=== PATIENT | female | born 1970 | race Caucasian/White ===

== ENCOUNTER 2017-07-28 09:00 | Outpatient (RCR) | payer OTHER, SELFPAY | END 2017-07-28 09:01 | disposition home or self-care (01) | LOC: PT 09:00 | PROVIDERS: Family Provider Family Medicine | DX: M54.17 Radiculopathy, lumbosacral region (principal) | CPT/HCPCS: 97010; 97012; 97014; 97110; 97140; G0283 ==

== ENCOUNTER → 2018-01-18 15:51 | Outpatient (CLI) | payer BC, SELFPAY ==
--- NOTE | 2018-01-18 15:55 | MM_ITS ---
MM Dig screening mamm BI w/CAD ORDERING PHYSICIAN : Mirela Klein PATIENT AGE: 47 years GENDER: Female COMPARISON: September 2015, May 20142010 bilateral mammogram. INDICATION: ITS.REASON: ANNUAL routine screening. Positive female hormone.: estrogen and progesterone. Family history.: Paternal cousin TECHNIQUE: Standard CC and MLO images were obtained. Additional axillary cc view left breast R2 CAD reviewed. FINDINGS: Low-density breast. Generalized fatty replacement. No suspicious findings. No suspicious nor dominant mass . No suspicious calcifications new architectural distortion. No significant change since previous studies. . Scant minor fibroglandular elements towards lateral, right breast more so than left appear stable. IMPRESSION: . Negative Low-density breast with no areas of concern Routine bilateral follow-up in one year recommended. BI-RADS Category: 1 Negative RECOMMENDED FOLLOW-UP: 1YR 1 YEAR FOLLOW-UP (A letter has been sent to the patient regarding results of the study.)
== END ==
PROVIDERS: Family Provider Family Medicine; Visit Provider Obstetrics & Gynecology Gynecology
DX: Z12.31 Encounter for screening mammogram for malignant neoplasm of breast (principal)
CPT/HCPCS: 77067

== ENCOUNTER → 2019-09-05 10:53 | Outpatient (CLI) | payer BC, SELFPAY ==
--- NOTE | 2019-09-05 10:59 | XR_ITS ---
PROCEDURE: XR KNEE LT 3V CLINICAL INDICATION: LT KNEE STRAIN Left knee pain COMPARISON: [id number] KNEE-3 VIEWS-RT from 12/12/2014 FINDINGS: No fracture or dislocation. No lytic or blastic change. There is normal mineralization. The joint spaces are well-preserved. No significant degenerative/arthritic changes. No erosive changes evident. Other findings:None. IMPRESSION: No acute findings. Dictated by: Reece Hopper MD 09/05/2019 11:13 Electronically signed by Reece Hopper MD in [place] 09/05/2019 11:13
== END ==
PROVIDERS: PCP Family Medicine; Visit Provider Family Medicine
DX: S83.422A Sprain of lateral collateral ligament of left knee, initial encounter (principal)
CPT/HCPCS: 73562

== ENCOUNTER → 2019-10-05 14:53 | Outpatient (CLI) | payer BC, SELFPAY ==
--- NOTE | 2019-10-05 15:03 | CA_ITS ---
APPROVED REPORT Left Lower Extremity Venous Study for DVT. 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 Study suggests no evidence of SVT in the left lower extremity. 4.4 cm complex lesion left politeal fossa, consistent with a Smith's cyst. Electronically signed by : Reece Hopper MD 10/05/2019 17:31:46
== END ==
PROVIDERS: PCP Family Medicine; Visit Provider Family Medicine
DX: M79.605 Pain in left leg (principal)
CPT/HCPCS: 93971

== ENCOUNTER → 2019-10-09 14:04 | Outpatient (CLI) | payer BC, SELFPAY ==
--- NOTE | 2019-10-09 14:06 | MR_ITS ---
PROCEDURE: MR KNEE LT WO CON CLINICAL INDICATION: PAIN OF LEFT LOWER EXTREMITY Pain and swelling with limited range of motion COMPARISON: XR KNEE LT 3V from 09/05/2019 TECHNIQUE: Routine multiplanar multi echo sequences are performed without gadolinium enhancement. FINDINGS: The cruciate ligaments, collateral ligaments, patellar tendon, and quadriceps tendon have an unremarkable appearance. There are some minimal osteoarthritic changes. There is a focal small defect within the cartilage along the medial femoral condyle posteriorly seen best on coronal image 24 series 10. There is a small knee joint effusion. There is generalized subcutaneous edema about the knee. Numerous varices are present along along the posterior lateral soft tissues. There is a Smith cyst present which measures 4 cm. Fluid is present inferior to the Smith's cyst suggesting rupture of the cyst with fluid infiltrating along the medial aspect of the medial head of the gastrocnemius. There is a small amount fluid in the anterior infrapatellar region as well. No obvious fracture. There is some increased T2 signal along the proximal tibia medially suggesting some underlying bone marrow edema. IMPRESSION: 1. No evidence of internal derangement. 2. Mild osteoarthritic change with knee joint effusion, Smith's cyst and mild thinning of the patellar cartilage. 3. There is fluid signal intensity present inferior to the Smith's cyst suggesting cyst rupture 4. Small defect in the cartilage of the lateral femoral condyle posteriorly Dictated by: Reece Hopper MD 10/10/2019 10:48 Electronically signed by Reece Hopper MD in [place] 10/10/2019 10:48
== END ==
PROVIDERS: PCP Family Medicine; Visit Provider Family Medicine
DX: M79.605 Pain in left leg (principal)
CPT/HCPCS: 73721

== ENCOUNTER 2020-01-04 16:00 | Outpatient (RCR) | payer BC, SELFPAY ==
--- NOTE | 2019-10-09 13:38 | HMH.PTOPWND ---
Rehab Outpt Wound Evaluation Rehab OP Wound Evaluation Start: 10/09/19 13:05 Freq: Status: Active Protocol: Document 10/09/19 13:26 ARUN (Rec: 10/09/19 13:38 PHORNE [id number]) Electronically Signed By Jared Gibbs, PT 10/09/19 13:26 Subjective/History History History Pt is 49 yowf who presents with c/o increased pain and swelling in the L LE x ~ 6 mos , but worse x ~ 1 mo. She reports, About a month ago I stepped down and felt a pop in my knee and now it hurts in the back of the knee really bad. X-ray was negative, US was negative for DVT but did show possible Smith's cyst. PMH: plantar fascia release, hiatal hernia, HL. Subjective Subjective Pt reports pain currently 6/10 , at worst 8/10 in the post L knee. Worse pain with increased walking. Presentation signs and symptoms would suggest some underlying Lipidema as well. Lymphedema Eval Classification of Lymphedema Secondary Lymphedema Yes Stemmer's sign Stemmer's Sign no Stage of Lymphedema Lymphedema stages Stage 0 (subjective c/o heaviness and aching) Skin Changes Redness Yes: minimal Discoloration of Skin Yes: some varicosity noted Pain Scale Pain Scale (0-10) 6 Affected Extremities Areas Affected by Lymphedema/Edema Left Lower Extremity Manual Lymphatic Drainage Treatment Area MLD Treatment Area Abdomen,Right Lower Extremity, Left Lower Extremity Wound Problems/Impairments Impairments Problems/Impairmments Palpation Tenderness,Impaired Range of Motion,Impaired Strength,Impaired Transfers, Impaired Gait Pattern,Impaired Walking,Increased Edema, Lymphedema Present,Subjective C/O Pain,Impaired Self Care/ Self Management Prognosis Rehab Potential Good Clinical Impression Consistent with Diagnosis Yes Short Term Goals Number of Weeks 4 Decreased Palpation Tenderness Yes: to min Increase Ability to Walk Yes Decrease Edema Yes Decrease Lymphedema
--- NOTE | 2019-11-23 09:16 | HMH.RHREAS ---
Rehab Reassessment Rehab OP Re-assessment Start: 11/23/19 09:10 Freq: Status: Active Protocol: Document 11/23/19 09:10 ARUN (Rec: 11/23/19 09:15 ARUN [id number]) Electronically Signed By Jared Gibbs, PT 11/23/19 09:10 Rehab Re-assessment Subjective Subjective Pt reports less pain overall in the L knee, but continues to have difficulty with some transfers. Objective Objective Notes L LE circumferential measurements: +1.4 cm total since initial eval. Less tenderness to palpation noted throughotu L LE. Assessment Progress Assessment Progressing as Expected Assessment Notes Improving c/o pain and tenderness, edema continues to fluctuate due to pt unable to wear compression on LE while at work. Patient goals met ST,2,3,4,5 Goals Not Met LT,2,3,4,5,6,7 Revised Goals none Plan Plan Continue per initial POC Frequency of Therapy 2 x/wk Duration of therapy 8 wks Time and Billing Re-Eval Time 15 Re-Eval Billing Units 1 PHYSICIAN CERTIFICATION: I certify the specified therapy services for Alma Saenz are required, authorized, and reviewed every 30 days.
== END 2020-01-04 16:54 | disposition home or self-care (01) ==
LOC: PT 16:00
PROVIDERS: PCP Family Medicine; Visit Provider Family Medicine
DX: M79.605 Pain in left leg (principal)
CPT/HCPCS: 97113; 97140; 97162; 97164

== ENCOUNTER 2020-01-18 16:00 | Outpatient (RCR) | payer BC, SELFPAY ==
--- NOTE | 2019-12-18 17:01 | HMH.PTOPEV ---
PT Outpatient Evaluation Rehab PT Outpatient Evaluation Start: 12/18/19 16:38 Freq: Status: Active Protocol: Document 12/18/19 16:38 WENDIKAREEM (Rec: 12/18/19 17:00 PDESEROUX [id number]) Electronically Signed By Ashok Martin PT 12/18/19 16:38 Outpatient Therapy Subjective History Subjective History Pt. is a 49 year old female who presents to outpatient PT clinic w/ complaints of chronic and intermittent LLE knee P! of insidious onset 6-7 months ago. Pt. reports feeling a tear in her knee w/ sharp P! shooting inferiorly to ft. in the beginning of September 2019. Recent diagnostic imaging positive for mild OA and an indication of a Smith's cyst rupture. Pt. denies having injections for current pathology. Pt. does however report symptom relief post steroid pack. Pt. RTMD . Current medications include Aleve, Ibuprofen, and a Calcium supplement. PMH includes Hyperlipidemia, LLE ft. plantar fasciotomy, bilateral ft. bunionectomies, and wisdom tooth extraction. Chief Complaint Pain,Stiff,Swelling Symptom Type Sharp,Shooting Symptoms Relieved By Rest/Positioning,Ice,OTC Meds Symptoms Aggravated By Sitting,Standing,Bending/ Stooping,Walking Prior Functional Limitations None Current Functional Limitations Lifting,Housework,Sleeping, Standing,Sitting,Squatting, Walking,Stairs Symptom Description Intermittent Level of pain today (0-10) 4 Pain scale - at its best (0-10) 0 Pain scale - at its worst (0-10) 10 Hip/Knee Eval Gait Observation General Gait Pattern Observation Antalgic Gait,Decrease Weight Bear (L),Decrease Stride Lngth (R) Assistive Device Assistive Devices None / NA Palpation Tenderness left Knee Palpation Finding Tenderness Knee Palpation Overall Comment grade 2-3 +TTP to lateral jt. line, biceps femoris tendon, tibia tubercle Hip Palpation Findings None/Nor
== END 2020-01-18 16:05 | disposition home or self-care (01) ==
LOC: PT 16:00
PROVIDERS: Visit Provider Orthopaedic Surgery
DX: M17.12 Unilateral primary osteoarthritis, left knee (principal)
CPT/HCPCS: 97010; 97014; 97033; 97035; 97110; 97163; G0283

== ENCOUNTER → 2020-02-01 14:36 | Outpatient (CLI) | payer BC, SELFPAY ==
[2020-02-01 15:05] LABS: Basophils % 0.6 % (0.1-2.0); Eosinophils % 0.3 % (0.1-12.0); Hematocrit 45.8 % (37.0-47.0); Hemoglobin 15.4 g/dL (12.2-16.2); Lymphocytes # 1.2 K/mm3 (0.7-4.5); Lymphocytes % 20.1 % (10-50); Mean Corpuscular HGB Conc 33.5 g/dL (31.8-35.4); Mean Corpuscular Hemoglobin 31.1 pg (27.0-31.2); Mean Corpuscular Volume 92.7 fl (81-99); Mean Platelet Volume 7.5 fl (7.4-10.4); Monocytes # 0.4 K/mm3 (0.1-1.0); Monocytes % 7.2 % (1.7-9.3); Neutrophils # 4.1 K/mm3 (1.8-7.8); Neutrophils % 71.8 % (37.0-80.0); Platelet Count 193 K/mm3 (142-424); Red Blood Count 4.95 M/mm3 (4.20-5.40); Red Cell Distribution Width 12.9 % (11.5-17.5); White Blood Count 5.8 K/mm3 (4.8-10.8)
[2020-02-03 14:44] LABS: Covid-19 Nasal PCR Sendout Lex Not Detected
== END ==
PROVIDERS: PCP Physician Assistant; Visit Provider Physician Assistant
DX: Z03.818 Encounter for observation for suspected exposure to other biological agents ruled out (principal)
CPT/HCPCS: 36415; 85025; U0004

== ENCOUNTER → 2020-09-13 09:27 | Outpatient (CLI) | payer BC, SELFPAY ==
--- NOTE | 2020-09-13 09:36 | XR_ITS ---
PROCEDURE: XR DEXA AXIAL SKELETON CLINICAL HISTORY: HORMONE REPLACEMENT THERAPY COMPARISON: No exams were available for comparison FINDINGS: The right hip BMD is 0.891 with a T-score of 0.4. The left hip BMD is 0.885 with a T-score of 0.3. The lumbar spine BMD is 1.213 with a T-score of 1.5. IMPRESSION: This patient is considered normal according to the World Health Organization criteria. Fracture risk is low. Based on these results a follow-up exam is recommended in 2 year. Dictated by: Reece Hopper MD 09/13/2020 20:47 Reece Hopper MD in [place] 09/14/2020 13:32
== END ==
PROVIDERS: PCP Family Medicine; Visit Provider Family Medicine
DX: Z13.820 Encounter for screening for osteoporosis (principal); Z79.890 Hormone replacement therapy
CPT/HCPCS: 77080

== ENCOUNTER 2021-04-25 20:46 | Emergency (ER) | payer BC, SELFPAY ==
[2021-04-25 20:50] VITALS: BP 183/95; PULSE 87; RESP 20; TEMP 36.9; O2SAT 100; BMI 43.6
--- NOTE | 2021-04-25 21:07 | XR_ITS ---
PROCEDURE INFORMATION: Exam: XR Right Shoulder Exam date and time: 04/25/2021 9:07 PM Age: 51 years old Clinical indication: Pain; Shoulder; Right; Patient HX: Lifted heavy turkey yesterday; Additional info: Cant hardly move it TECHNIQUE: Imaging protocol: XR Right shoulder. Views: 2 or more views. COMPARISON: No relevant prior studies available. FINDINGS: Bones/joints: Normal. Soft tissues: Normal. IMPRESSION: No acute findings.
--- NOTE | 2021-04-25 21:24 | HMH.EDUTC ---
[facility] [place] Disposition Clinical Impression: Right shoulder pain Qualifiers: Chronicity: acute Qualified Code(s): M25.511 - Pain in right shoulder Shingles Qualifiers: Herpes zoster complications: without complications Qualified Code(s): B02.9 - Zoster without complications Disposition: Home, Self-Care Condition on Discharge: Good Instructions: DI for Shingles, Shingles, DI for Shoulder Pain Additional Instructions: Rest the extremity for the next few day. Start the oral steroids (prednisone) tomorrow. Try to see Dr. Whitaker on Wednesday if at all possible. By then, if this is shingles it will be more obvious. If Dr. Whitaker doesn't think it is shingles then he could stop some of the medications that we are prescribing tonight. Follow up with your regular doctor. GO TO THE ER FOR ANY WORSENING SYMPTOMS Prescriptions: Acyclovir 800 mg PO 5XDAY 7 Days #35 tab Transmission Status: Pending to [facility] predniSONE [Deltasone 10mg tablet] 10 mg PO DAILY 9 Days #21 tab Transmission Status: Pending to [facility] Referrals: John Whitaker MD [Primary Care Provider] - Time of Disposition: 21:51 Medical Decision Making - Medical Records Medical records reviewed: No: I reviewed the patient's medical records. - Mata Inquiry Pt receiving controlled substance: No Vital Signs: 04/25/21 20:50 Temperature 98.4 F Temperature Source Oral Pulse Rate [Left Brachial] 87 Respiratory Rate 20 02 Sat by Pulse Oximetry 100 Oxygen Delivery Method Room Air Orders (Tests/Meds): ORDERS Category Date Time Status Shoulder XR right miminum 2 views [XR shoulder RT min Exams 04/25/21 21:07 Taken 2V] Stat - Radiology Data #1 Image(s): Shoulder Image Reviewed: Yes I reviewed the patient's radiology image Preliminary Findings: No Fracture Seen [facility] [place] HPI - General Stated complaint: R upper and shoulder pain Time Seen by Provider: 04/25/21 21:24 Mode of Arrival: Ambulatory Source of Information: Patient Limitations: No Limitations Description of Symptoms (Recalled from Triage Doc. by RN): PATIENT C/O PAIN TO RIGHT SHOULDER THAT STARTED YESTERDAY AFTERNOON. NO KNOWN INJURY HEENT Symptoms (Recalled from RN notes): No Resp Symptoms (Recalled from RN notes): No Skin Symptoms (Recalled from RN notes): No MS Symptoms (Recalled from RN notes): Yes Functional Status (Recalled from RN notes): WNL - History of Present Illness Provider Complaint: She c/o right shoulder and right upper arm pain since yesterday afternoon. She denies any injury. She did lift a 20 pound turkey with that arm right before her symptoms began yesteday. She denies any fever or chills. She also has a small area of a reddish rash on the right side of her neck. She states that this came up 2 days ago. She has had some itching at that site, but she does not have pain at that site. She denies that there are any additional lesions on her skin. - Related Data Home Medications Medication Instructions Recorded Confirmed Atorvastatin Calcium [Atorvastatin 20 mg PO DAILY 03/04/18 12/08/19 20mg Tab] Medroxyprogesterone Acetate 2.5 mg PO DAILY 03/04/18 12/08/19 [Provera 2.5mg tablet] estradioL [Estradiol] 1 mg PO DAILY 03/04/18 12/08/19 Previous Rx's Medication Instructions Recorded Acyclovir 800 mg PO 5XDAY 7 Days #35 tab 04/25/21 predniSONE [Deltasone 10mg tablet] 10 mg PO DAILY 9 Days #21 tab 04/25/21 Allergies Allergy/AdvReac Type Severity Reaction Status Date / Time acetaminophen [From Percocet] AdvReac Verified 12/08/19 14:30 oxycodone [From Percocet] AdvReac Verified 12/08/19 14:30 - Worker's Comp Is this a Worker's Comp case?: No [facility] History - Hepatitis A Screen Drug use history?: No High risk sexual behaviors?: No History of sexually transmitted infection?: No Currently employed?: No Childcare worker?: No Do you have indoor plumbing?: Yes Do you have electricity?: Yes Att
[2021-04-25 21:43] VITALS: BP 183/95; PULSE 87; RESP 20; TEMP 36.9; O2SAT 100
== END 2021-04-25 22:01 | disposition home or self-care (01) ==
PROVIDERS: Emergency Provider Nurse Practitioner Family; PCP Family Medicine
DX: B02.9 Zoster without complications (principal); M25.511 Pain in right shoulder; E78.5 Hyperlipidemia, unspecified
CPT/HCPCS: 73030; 96372; 99202; G0463

== ENCOUNTER 2021-06-04 17:54 | Emergency (ER) | payer OTHER, SELFPAY ==
[2021-06-04 18:48] VITALS: PULSE 98; RESP 18; TEMP 36.7; O2SAT 99; BMI 43.6
--- NOTE | 2021-06-04 18:53 | XR_ITS ---
PROCEDURE INFORMATION: Exam: XR Right Wrist Exam date and time: 06/04/2021 6:53 PM Age: 51 years old Clinical indication: Injury or trauma; Other: Work related injury; Blunt trauma (contusions or hematomas); Wrist; Right; Additional info: Katarzyna TECHNIQUE: Imaging protocol: XR Right wrist. Views: 3 or more views. COMPARISON: CR XR HAND RT MIN 3V 06/04/2021 7:13 PM FINDINGS: Bones/joints: Severe degenerative changes at the trapeziometacarpal joint, compatible with chronic sequelae of prior trauma or calcific periarthritis. Dorsoradial subluxation of the 1st metacarpal base, most likely degenerative. No acute fracture or malalignment. Negative ulnar variance. Soft tissues: Soft tissue edema noted at the base of the thumb. IMPRESSION: 1. No acute osseous abnormality in the right wrist. 2. Severe degenerative changes at the trapeziometacarpal joint, compatible with chronic sequelae of prior trauma or calcific periarthritis. 3. Negative ulnar variance.
--- NOTE | 2021-06-04 18:53 | XR_ITS ---
PROCEDURE INFORMATION: Exam: XR Right Hand Exam date and time: 06/04/2021 6:53 PM Age: 51 years old Clinical indication: Injury or trauma; Other: Work related injury; Blunt trauma (contusions or hematomas); Hand; Right; Additional info: Katarzyna TECHNIQUE: Imaging protocol: XR Right hand. Views: 3 or more views. COMPARISON: No relevant prior studies available. FINDINGS: Bones/joints: Severe degenerative changes at the trapeziometacarpal joint, compatible with chronic sequelae of prior trauma or calcific periarthritis. Dorsoradial subluxation of the 1st metacarpal base, most likely degenerative. No acute fracture or malalignment. Negative ulnar variance. Moderate degenerative changes in the 1st metacarpophalangeal joint. Soft tissues: Soft tissue edema noted at the base of the thumb. IMPRESSION: 1. No acute osseous abnormality in the right hand. 2. Severe degenerative changes at the trapeziometacarpal joint, compatible with chronic sequelae of prior trauma or calcific periarthritis. 3. Dorsoradial subluxation of the 1st metacarpal base, likely degenerative. 4. Moderate degenerative changes in the 1st metacarpophalangeal joint. 5. Negative ulnar variance.
--- NOTE | 2021-06-04 19:07 | HMH.EDUTC ---
[facility] [place] Disposition Clinical Impression: Tenosynovitis of right wrist Disposition: Home, Self-Care Condition on Discharge: Good Instructions: Tendinopathy, DI for Tendinitis, DI for Tenosynovitis Additional Instructions: Rest the extremity, apply ice for 15 minutes as tolerated three or four times per day, wear the wrist splint to rest your wrist, Elevate the extremity as tolerated while you are resting. Take the medication as directed. Follow up with Dr. Sanders (orthopedics). I put in a referral but you need to call his office and schedule an appointment. Don't be doing the task at your job that irritated your wrist until you are seen by orthopedics. Follow up with your regular doctor. GO TO THE ER FOR ANY WORSENING SYMPTOMS Prescriptions: methylPREDNISolone [Medrol] 4 mg PO DIRECTED 6 Days #21 packet Transmission Status: Received by [facility] Referrals: John Whitaker MD [Primary Care Provider] - Vinay Sanders MD [Staff Physician] - Forms: Work/School Release Time of Disposition: 19:56 Medical Decision Making - Medical Records Medical records reviewed: No: I reviewed the patient's medical records. - Mata Inquiry Pt receiving controlled substance: No Vital Signs: 06/04/21 18:48 06/04/21 20:00 Temperature 98.1 F 98.1 F Temperature Source Oral Pulse Rate 98 H Pulse Rate [Left] 98 H Respiratory Rate 18 18 Blood Pressure 0/0 L 02 Sat by Pulse Oximetry 99 Orders (Tests/Meds): ED MEDICATIONS Discontinued Medications Generic Name Dose Route Start Last Admin Trade Name Gail PRN Reason Stop Dose Admin Ketorolac Tromethamine 60 mg 06/04/21 19:40 06/04/21 19:59 Ketorolac 60mg/2ml Vial IM 06/04/21 19:41 60 mg ONCE ONE Administration Methylprednisolone Sodium Succinate 125 mg 06/04/21 19:40 06/04/21 19:59 Methylprednisolone Sod Succ 125mg Vial IM 06/04/21 19:41 125 mg ONCE ONE Administration - Radiology Data #1 Image(s): Wrist Image Reviewed: Yes I reviewed the patient's radiology image, Yes I have reviewed radiologist's interpretation Preliminary Findings: Normal/NAD, No Fracture Seen PROCEDURE INFORMATION: Exam: XR Right Wrist Exam date and time: 06/04/2021 6:53 PM Age: 51 years old Clinical indication: Injury or trauma; Other: Work related injury; Blunt trauma (contusions or hematomas); Wrist; Right; Additional info: Katarzyna TECHNIQUE: Imaging protocol: XR Right wrist. Views: 3 or more views. COMPARISON: CR XR HAND RT MIN 3V 06/04/2021 7:13 PM FINDINGS: Bones/joints: Severe degenerative changes at the trapeziometacarpal joint, compatible with chronic sequelae of prior trauma or calcific periarthritis. Dorsoradial subluxation of the 1st metacarpal base, most likely degenerative. No acute fracture or malalignment. Negative ulnar variance. Soft tissues: Soft tissue edema noted at the base of the thumb. IMPRESSION: 1. No acute osseous abnormality in the right wrist. 2. Severe degenerative changes at the trapeziometacarpal joint, compatible with chronic sequelae of prior trauma or calcific periarthritis. 3. Negative ulnar variance. [facility] [place] HPI - General Stated complaint: knot on R hand numbness and pain Time Seen by Provider: 06/04/21 19:07 Mode of Arrival: Ambulatory Source of Information: Patient Limitations: No Limitations Description of Symptoms (Recalled from Triage Doc. by RN): pt works at [employer]. 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 HEENT Symptoms (Recalled from RN notes): No Resp Symptoms (Recalled from RN notes): No Skin Symptoms (Recalled from RN notes): No MS Symptoms (Recalled from RN notes): Yes Functional Status (Recalled from RN notes): wnl - History of Present Illness Provider Complaint: She states that at her job for the past 2 days, she has had to put a
[2021-06-04 20:00] VITALS: BP 0/0; PULSE 98; RESP 18; TEMP 36.7
== END 2021-06-04 20:05 | disposition home or self-care (01) ==
PROVIDERS: Emergency Provider Nurse Practitioner Family; PCP Family Medicine
DX: M65.832 Other synovitis and tenosynovitis, left forearm (principal); E78.5 Hyperlipidemia, unspecified
CPT/HCPCS: 29125; 73110; 73130; 99202; G0463

== ENCOUNTER 2021-07-21 16:17 | Emergency (ER) | payer OTHER, BC, SELFPAY ==
[2021-07-21 17:50] VITALS: BP 146/113; PULSE 82; RESP 18; TEMP 36.7; O2SAT 100; BMI 43.6
--- NOTE | 2021-07-21 18:16 | HMH.EDUTC ---
[facility] [place] Impression: De Quervain's tenosynovitis, right, Right hand pain Disposition: Home, Self-Care Condition on Discharge: Good Instructions: DI for Hand Injury Additional Instructions: I don't seen any signs or symptoms of cellulitis of the hand, wrist, or forearm. Rest the extremity, Elevate the extremity as tolerated while you are resting. Take the oral steroids as directed. These should help your hand pain. Follow up with Dr. Sanders (orthopedics). Please call his office and let them know you are having worsening symptoms so they can recheck you there. Follow up with your regular doctor. GO TO THE ER FOR ANY WORSENING SYMPTOMS Prescriptions: methylPREDNISolone [Medrol] 4 mg PO DIRECTED 6 Days #21 packet Transmission Status: Received by [facility] Referrals: John Whitaker MD [Primary Care Provider] - Forms: Work/School Release Time of Disposition: 18:44 Medical Decision Making - Medical Records Medical records reviewed: Yes: I reviewed the patient's medical records. - Mata Inquiry Pt receiving controlled substance: No Vital Signs: 07/21/21 17:50 07/21/21 18:50 Temperature 98.0 F 98.1 F Temperature Source Oral Oral Pulse Rate 97 H Pulse Rate [Left Brachial] 82 Respiratory Rate 18 16 Blood Pressure 157/100 H Blood Pressure [Left Arm] 146/113 H Blood Pressure Mean [Left Arm] 124 Blood Pressure Source Automatic Cuff Blood Pressure Source [Left Arm] Automatic Cuff Blood Pressure Position Sitting Blood Pressure Position [Left Arm] Sitting 02 Sat by Pulse Oximetry 100 Oxygen Delivery Method Room Air Room Air Medical Decision Narrative: There is no erythema or warmth of her right hand, wrist, or forearm. It does not appear to be a cellulitis. There is moderate edema noted. [facility] [place] - General Stated complaint: WC 0105 re assessment needed,swollen Time Seen by Provider: 07/21/21 18:16 Mode of Arrival: Ambulatory Source of Information: Patient Limitations: Physical Limitations Description of Symptoms (Recalled from Triage Doc. by RN): right hand work injury from 04/04/22, hand is red and weollen and has increased in pain. (pt. has been seeing ortho for injury, but work told her to go to [facility] due to new symptoms) HEENT Symptoms (Recalled from RN notes): No Resp Symptoms (Recalled from RN notes): No Skin Symptoms (Recalled from RN notes): No MS Symptoms (Recalled from RN notes): Yes Functional Status (Recalled from RN notes): n/a - History of Present Illness Provider Complaint: She is here for a recheck of her right hand. She has a history of injuring it at her work from chronic activities. She was here around 1 month ago initially with right hand pain and swelling. She has saw orthopedics and she has been doing light duty at work for her hand pain. It had been doing better. But, over the past couple of days, she has had worsening swelling and pain with movement of her right hand. She is also having decreased sensation of her her 4th and 5th fingers. She has a nerve conduction study scheduled with ortho to further evaluate her hand injury, but her work wanted her to be checked here to see if this is something else, like cellulitis. She is not a diabetic. She denies any recent known injury to the hand. - Related Data Home Medications Medication Instructions Recorded Confirmed Atorvastatin Calcium [Atorvastatin 20 mg PO DAILY 03/04/18 07/21/21 20mg Tab] Medroxyprogesterone Acetate 2.5 mg PO DAILY 03/04/18 07/21/21 [Provera 2.5mg tablet] estradioL [Estradiol] 1 mg PO DAILY 03/04/18 07/21/21 Previous Rx's Medication Instructions Recorded methylPREDNISolone [Medrol] 4 mg PO DIRECTED 6 Days #21 07/21/21 packet Allergies Allergy/AdvReac Type Severity Reaction Status Date / Time acetaminophen [From Percocet] AdvReac Verified 07/21/21 16:37 oxycodone [From Percocet] AdvReac Verified 07/21/21 16:37 - Worker's C
[2021-07-21 18:50] VITALS: BP 157/100; PULSE 97; RESP 16; TEMP 36.7; O2SAT 99
== END 2021-07-21 18:54 | disposition home or self-care (01) ==
PROVIDERS: Emergency Provider Nurse Practitioner Family; PCP Family Medicine
DX: M65.4 Radial styloid tenosynovitis [de Quervain] (principal)
CPT/HCPCS: 99202; G0463

== ENCOUNTER 2021-07-30 12:31 | Outpatient (RCR) | payer OTHER, SELFPAY | END 2021-07-30 14:20 | disposition home or self-care (01) | LOC: OT 12:31 | PROVIDERS: Visit Provider Orthopaedic Surgery | DX: M25.532 Pain in left wrist (principal) | CPT/HCPCS: 97763 ==

== ENCOUNTER → 2021-07-30 12:56 | Outpatient (CLI) | payer OTHER, SELFPAY ==
[2021-07-30 14:01] LABS: Basophils # 0.1 K/mm3 (0-0.2); Basophils % 0.8 % (0.1-2.0); Eosinophils # 0.1 K/mm3 (0.0-0.4); Hematocrit 44.1 % (37.0-47.0); Hemoglobin 13.8 g/dL (12.2-16.2); Lymphocytes # 2.1 K/mm3 (0.7-4.5); Lymphocytes % 17.5 % (10-50); Mean Corpuscular HGB Conc 31.3 g/dL (31.8-35.4); Mean Corpuscular Hemoglobin 30.5 pg (27.0-31.2); Mean Corpuscular Volume 97.6 fl (81-99); Mean Platelet Volume 7.7 fl (7.4-10.4); Monocytes # 0.5 K/mm3 (0.1-1.0); Monocytes % 4.3 % (1.7-9.3); Neutrophils # 9.2 K/mm3 (1.8-7.8); Neutrophils % 76.3 % (37.0-80.0); Platelet Count 394 K/mm3 (142-424); Red Blood Count 4.51 M/mm3 (4.20-5.40); Red Cell Distribution Width 13.6 % (11.5-17.5)
[2021-07-30 14:43] LABS: Uric Acid 6.4 mg/dl (2.5-6.2)
[2021-07-30 15:57] LABS: Erythrocyte Sedimentation Rate 61 mm/hr (0-30)
[2021-08-01 13:12] LABS: RA Latex Turbid. 62.7 IU/mL (<14.0)
[2021-08-03 04:07] LABS: Anti-Cyclic Citrullinated Pept 138 units (0-19)
[2021-09-02 19:24] LABS: Antinuclear Antibodies (ANA) NEGATIVE
[2021-09-02 19:25] LABS: Antinuclear Antibodies, IFA POSITIVE
== END ==
PROVIDERS: Visit Provider Orthopaedic Surgery
DX: M79.641 Pain in right hand (principal); M18.11 Unilateral primary osteoarthritis of first carpometacarpal joint, right hand
CPT/HCPCS: 36415; 84550; 85025; 85651; 86038; 86140; 86200; 86431

== ENCOUNTER → 2021-09-29 15:16 | Outpatient (CLI) | payer BC, SELFPAY ==
[2021-09-29 16:38] LABS: Basophils # 0.1 K/mm3 (0-0.2); Basophils % 1.7 % (0.1-2.0); Eosinophils # 0.1 K/mm3 (0.0-0.4); Hematocrit 44.8 % (37.0-47.0); Hemoglobin 15.1 g/dL (12.2-16.2); Lymphocytes # 2.7 K/mm3 (0.7-4.5); Lymphocytes % 37.5 % (10-50); Mean Corpuscular HGB Conc 33.8 g/dL (31.8-35.4); Mean Corpuscular Hemoglobin 31.4 pg (27.0-31.2); Mean Platelet Volume 8.4 fl (7.4-10.4); Monocytes # 0.3 K/mm3 (0.1-1.0); Monocytes % 4.7 % (1.7-9.3); Neutrophils % 55.1 % (37.0-80.0); Platelet Count 350 K/mm3 (142-424); Red Blood Count 4.81 M/mm3 (4.20-5.40); Red Cell Distribution Width 14.1 % (11.5-17.5); White Blood Count 7.2 K/mm3 (4.8-10.8)
[2021-09-29 17:20] LABS: Alanine Aminotransferase 27 U/L (12-78); Albumin Level 4.2 g/dl (3.5-5.0); Albumin/Globulin Ratio 1.7 (1.1-1.8); Alkaline Phosphatase 96 U/L (38-126); Anion Gap 11.2 mEq/L (5-15); Aspartate Amino Transferase 32 U/L (14-36); Bilirubin,Total 0.5 mg/dl (0.2-1.3); Blood Urea Nitrogen 20 mg/dl (7-17); Calcium 9.9 mg/dl (8.4-10.2); Carbon Dioxide 31 mmol/L (22.0-30.0); Chloride 101 mmol/L (98-107); Estimated Glomerular Filt Rate 65 ml/min (>60); GFR (African American) 79 ML/MIN (>60); Globulin 2.5 g/dL (1.3-3.2); Glucose 132 mg/dl (74-100); Potassium 4.2 mmoL/L (3.5-5.1); Sodium 139 mmol/L (136-145); Total Protein,Serum 6.7 g/dl (6.3-8.2); Uric Acid 8.4 mg/dl (2.5-6.2)
[2021-09-29 17:26] LABS: C-Reactive Protein 4.7 mg/L (0-4)
[2021-09-29 17:56] LABS: Erythrocyte Sedimentation Rate 26 mm/hr (0-30)
[2021-10-01 08:18] LABS: Complement C3 177 mg/dL (82-167)
[2021-10-01 12:13] LABS: Anti-Centromere B Antibodies 0.2 AI (0.0-0.9); Anti-DNA (DS) Ab Qn <1 IU/mL (0-9); Anti-Jo-1 <0.2 AI (0.0-0.9); Anti-Smith Antibody <0.2 AI (0.0-0.9); Antichromatin Antibodies 0.2 AI (0.0-0.9); Antiscleroderma-70 Antibodies <0.2 AI (0.0-0.9); RNP Antibodies <0.2 AI (0.0-0.9); Sjogren's Anti-SS-A <0.2 AI (0.0-0.9); Sjogren's Anti-SS-B <0.2 AI (0.0-0.9)
[2021-10-01 18:26] LABS: QuantiFERON-TB Gold Plus Negative (Negative)
[2021-10-10 11:04] LABS: Miscellaneous Test NEGATIVE
[2021-10-25 17:16] LABS: Hep A Ab, IgM NEGATIVE
[2021-10-25 17:17] LABS: Hepatitis B Core Antibody IgM NEGATIVE; Hepatitis B Surface Antigen NEGATIVE; Hepatitis C Antibody <0.1
[2021-10-25 17:18] LABS: Antinuclear Antibodies, IFA POSITIVE
== END ==
PROVIDERS: Visit Provider Internal Medicine Rheumatology
DX: E79.0 Hyperuricemia without signs of inflammatory arthritis and tophaceous disease (principal); M05.89 Other rheumatoid arthritis with rheumatoid factor of multiple sites; R53.83 Other fatigue; E66.9 Obesity, unspecified; Z68.41 Body mass index [BMI] 40.0-44.9, adult; Z79.899 Other long term (current) drug therapy
CPT/HCPCS: 36415; 80053; 80074; 84550; 85025; 85651; 86038; 86140; 86161; 86225; 86235; 86480

== ENCOUNTER 2021-10-26 18:53 | Emergency (ER) | payer BC, SELFPAY ==
[2021-10-26 19:30] VITALS: BP 142/73; PULSE 119; RESP 19; TEMP 37.2; O2SAT 98; BMI 40.1
[2021-10-26 19:59] LABS: Adenovirus,PCR Not Detected (NotDetected); Bordetella Pertussis Not Detected (NotDetected); Chlamydophila Pneumoniae, PCR Not Detected (NotDetected); Coronavirus 229E Not Detected (NotDetected); Coronavirus NL63 Not Detected (NotDetected); Coronavirus OC43 Not Detected (NotDetected); Coronovirus HKU1,PCR Not Detected (NotDetected); Human Metapneumovirus Not Detected (NotDetected); Influenza A, PCR Not Detected (NotDetected); Influenza AH1, 2009 Not Detected (NotDetected); Influenza AH1, PCR Not Detected (NotDetected); Influenza AH3,PCR Not Detected (NotDetected); Influenza B, PCR Not Detected (NotDetected); Mycoplasma Pneumoniae, PCR Not Detected (NotDetected); Parainfluenza 1, PCR Not Detected (NotDetected); Parainfluenza 2, PCR Not Detected (NotDetected); Parainfluenza 3, PCR Not Detected (NotDetected); Parainfluenza 4, PCR Not Detected (NotDetected); Rhinovirus/Enterovirus Not Detected (NotDetected)
--- NOTE | 2021-10-26 20:01 | HMH.EDUTC ---
[facility] [place] Disposition Clinical Impression: Sinusitis Qualifiers: Sinusitis location: unspecified location Chronicity: unspecified Qualified Code(s): J32.9 - Chronic sinusitis, unspecified Disposition: Home, Self-Care Condition on Discharge: Good Instructions: Sinusitis, DI for Sinusitis, Methylprednisolone, Amoxicillin and Clavulanic Acid Additional Instructions: *Monitor Temp, Over the counter Motrin or Tylenol as directed/as needed Tylenol every 4 hours and Motrin every 6 hours (as long as your family doctor has told you that you can take it) for fever or pain. and straight to ER if unable to lower temp less than 101.0 after medication given *Warm salt water gargles may help to soothe the throat *Throat Lozenges *Warm fluids like tea with honey may help to soothe the throat *Sleep elevated *Humidifier/Vaporizer *Flonase 2 sprays in each nostril daily but be aware that it may take 2-3 days before you notice improvement \Take medication as prescribed Follow up IMMEDIATELY for new or worsening symptoms or no Noticeable improvement over the next 48-72 hours. 911 for difficulty breathing or swallowing Prescriptions: Benzonatate [Benzonatate 100mg cap] 100 mg PO Q8HP PRN #15 cap PRN Reason: Cough Transmission Status: Pending to [facility] Amoxicillin/Potassium Clav [Amox-Clav 875-125 mg Tablet] 1 tab PO BID #14 tab Transmission Status: Received by [facility] Fluticasone Propionate [Flonase 50mcg nasal spray 16gm] 1 spr NS DAILY #1 each Transmission Status: Received by [facility] methylPREDNISolone [Medrol 4mg tab] 4 mg PO DIRECTED #21 tab Transmission Status: Received by [facility] Referrals: John Whitaker MD [Primary Care Provider] - As needed Forms: Work/School Release Time of Disposition: 20:14 Medical Decision Making - Mata Inquiry Pt receiving controlled substance: No Mata was queried for this patient: No Vital Signs: 10/26/21 19:30 10/26/21 20:21 Temperature 98.9 F 98.9 F Temperature Source Oral Pulse Rate 119 H Pulse Rate [Right Brachial] 119 H Respiratory Rate 19 19 Blood Pressure 142/73 H Blood Pressure [Right Arm] 142/73 H Blood Pressure Mean [Right Arm] 96 Blood Pressure Source [Right Arm] Automatic Cuff Blood Pressure Position [Right Arm] Sitting 02 Sat by Pulse Oximetry 98 Oxygen Delivery Method Room Air Orders (Tests/Meds): ED MEDICATIONS Discontinued Medications Generic Name Dose Route Start Last Admin Trade Name Gail PRN Reason Stop Dose Admin Amoxicillin/Clavulanate Potassium 1 each 10/26/21 20:11 10/26/21 20:19 Amoxicillin/Pot Clavulan 500mg Tablet PO 10/26/21 20:12 1 each ONCE ONE Administration Methylprednisolone Sodium Succinate 125 mg 10/26/21 20:11 10/26/21 20:19 Methylprednisolone Sod Succ 125mg Vial IM 10/26/21 20:12 125 mg ONCE ONE Administration ORDERS Category Date Time Status Covid-19 Nasal PCR ([facility]) Routine Lab 10/26/21 19:26 Received Upper Respiratory Panel, PCR Stat Lab 10/26/21 19:26 Received Medical Decision Narrative: Patient states that she has taken augmentin and Prednisone before without reactions or complications [facility] [place] HPI - General Stated complaint: ear and sinus pain, congestion, sore throat, cough Time Seen by Provider: 10/26/21 20:01 Mode of Arrival: Ambulatory Source of Information: Patient Limitations: No Limitations Description of Symptoms (Recalled from Triage Doc. by RN): PATIENT C/O COUGH, LOW-GRADE FEVER, EAR ACHE, SORE THROAT, SINUS PRESSURE, AND FATIGUE X 1 WEEK HEENT Symptoms (Recalled from RN notes): Yes Resp Symptoms (Recalled from RN notes): Yes Skin Symptoms (Recalled from RN notes): No MS Symptoms (Recalled from RN notes): No Functional Status (Recalled from RN notes): WNL - History of Present Illness Provider Complaint: Patient states that she has been having sinus pain and pressure, ear ache, sore throat, low grade feve
[2021-10-26 20:21] VITALS: BP 142/73; PULSE 119; RESP 19; TEMP 37.2; O2SAT 98
[2021-10-26 22:25] LABS: Respiratory Syncytial Virus Detected (NotDetected)
== END 2021-10-26 20:46 | disposition home or self-care (01) ==
PROVIDERS: Emergency Provider Nurse Practitioner; PCP Family Medicine
DX: J32.9 Chronic sinusitis, unspecified (principal); I10 Essential (primary) hypertension; E78.5 Hyperlipidemia, unspecified
CPT/HCPCS: 87486; 87581; 87632; 87798; 96372; 99213; C9803; G0463; U0003; U0005

== ENCOUNTER → 2021-10-31 09:44 | Outpatient (CLI) | payer BC, SELFPAY ==
[2021-10-31 10:27] LABS: Basophils # 0.4 K/mm3 (0-0.2); Basophils % 2.9 % (0.1-2.0); Eosinophils # 0.1 K/mm3 (0.0-0.4); Hematocrit 42.2 % (37.0-47.0); Hemoglobin 14.1 g/dL (12.2-16.2); Lymphocytes # 3.5 K/mm3 (0.7-4.5); Lymphocytes % 27.1 % (10-50); Mean Corpuscular HGB Conc 33.4 g/dL (31.8-35.4); Mean Corpuscular Volume 95.6 fl (81-99); Mean Platelet Volume 8.2 fl (7.4-10.4); Monocytes # 0.6 K/mm3 (0.1-1.0); Monocytes % 4.5 % (1.7-9.3); Neutrophils # 8.3 K/mm3 (1.8-7.8); Neutrophils % 64.5 % (37.0-80.0); Platelet Count 411 K/mm3 (142-424); Red Blood Count 4.41 M/mm3 (4.20-5.40); Red Cell Distribution Width 14.5 % (11.5-17.5); White Blood Count 12.9 K/mm3 (4.8-10.8)
[2021-10-31 10:52] LABS: Alanine Aminotransferase 27 U/L (12-78); Albumin Level 3.6 g/dl (3.5-5.0); Albumin/Globulin Ratio 1.3 (1.1-1.8); Alkaline Phosphatase 90 U/L (38-126); Anion Gap 10.7 mEq/L (5-15); Aspartate Amino Transferase 20 U/L (14-36); Bilirubin,Total 0.3 mg/dl (0.2-1.3); Blood Urea Nitrogen 24 mg/dl (7-17); Calcium 9.3 mg/dl (8.4-10.2); Carbon Dioxide 32 mmol/L (22.0-30.0); Chloride 101 mmol/L (98-107); Estimated Glomerular Filt Rate 65 ml/min (>60); GFR (African American) 79 ML/MIN (>60); Globulin 2.7 g/dL (1.3-3.2); Glucose 121 mg/dl (74-100); Potassium 4.7 mmoL/L (3.5-5.1); Sodium 139 mmol/L (136-145); Total Protein,Serum 6.3 g/dl (6.3-8.2)
[2021-10-31 10:57] LABS: C-Reactive Protein 14.6 mg/L (0-4)
[2021-10-31 11:02] LABS: Erythrocyte Sedimentation Rate 56 mm/hr (0-30)
== END ==
PROVIDERS: PCP Family Medicine; Visit Provider Internal Medicine Rheumatology
DX: M05.89 Other rheumatoid arthritis with rheumatoid factor of multiple sites (principal); E79.0 Hyperuricemia without signs of inflammatory arthritis and tophaceous disease; R53.83 Other fatigue; E66.9 Obesity, unspecified; Z68.41 Body mass index [BMI] 40.0-44.9, adult; Z79.899 Other long term (current) drug therapy
CPT/HCPCS: 36415; 80053; 85025; 85651; 86140

== ENCOUNTER → 2021-11-11 10:33 | Outpatient (CLI) | payer OTHER, BC, SELFPAY ==
--- NOTE | 2021-11-11 10:38 | XR_ITS ---
FINAL REPORT CLINICAL HISTORY: rt hand pain COMPARISON: June 04, 2021 FINDINGS: 3 views of the right hand were obtained. There is no acute fracture or dislocation. Mild and moderate degenerative changes are greatest at the 1st CMC joint. There is no soft tissue abnormality. IMPRESSION: Mild and moderate degenerative changes, stable. Reviewed, Interpreted and Dictated by Hernan Lepe III, MD Transcribed by Dc Bryan Authenticated and [facility]
== END ==
PROVIDERS: PCP Family Medicine; Visit Provider Orthopaedic Surgery
DX: M79.641 Pain in right hand (principal)
CPT/HCPCS: 73130

== ENCOUNTER 2021-11-13 17:00 | Outpatient (RCR) | payer OTHER, SELFPAY ==
--- NOTE | 2021-08-26 17:57 | HMH.PTOPEV ---
PT Outpatient Evaluation Rehab PT Outpatient Evaluation Start: 08/26/21 17:42 Freq: Status: Active Protocol: Document 08/26/21 17:43 ALIZE (Rec: 08/26/21 17:57 ALIZE [id number]) Electronically Signed By Octavio Thurman PT 08/26/21 17:43 Outpatient Therapy Subjective History Subjective History This is the initial Physical Therapy evaluation for Alma Saenz. Pt is a 51 y/o female referred to PT for c/o R hand pain. Pt states her initial injury was June 04 at work. Pt states she felt sharp pain in palm of hand and hand began to swell. SHe had difficulty w/ grasping and doing tasks. Pt reports it proceeded to get some better w / rest but ~ 3 weeks later it swole up again insidiously. Pt reports another decrease in function and pain. Pt c/o paresthesia in last half of 2 and 3rd digit Chief Complaint Pain,Swelling Symptom Type Ache,Throb,Sharp,Dull,Stabbing ,Burning,Numbness,Tingling Symptoms Relieved By Rest/Positioning Symptoms Aggravated By Physical Activity Prior Functional Limitations None Current Functional Limitations Reaching,Lifting,Housework, Dressing,Driving,Sleeping, Recreation Activity Symptom Description Constant but Variable Wrist/Hand Eval Palpation Tenderness/Visual Exam Wrist pain right tenderness wrist exam standard right Wrist/Hand Palpation Findings Tenderness Wrist/Hand Palpation Overall Comment no edema, no errythemia, no tinels at carpal tunnel or ulnar. Wrist Range of Motion Right Wrist Extension Active Range of Motion ( 30 degrees) Wrist Flexion Active Range of Motion ( 30 degrees) Left Wrist Extension Active Range of Motion ( 70 degrees) Wrist Flexion Active Range of Motion ( 60 degrees) Hand/Finger Manual Muscle testing Right Little Finger Finger Strength Reason Not Measured WFL Right Ring Finger Finger Strength Reason Not Measured WFL Right Middle Finger Finger Strength Reason Not Measured WFL Right Index Finger Finger Strength Reason Not Measured WFL Wrist/Hand Muscle Tone Finger Extensors Muscle Tone Description Normal Finger Flexors Muscle Tone Desc
== END 2021-11-13 17:05 | disposition home or self-care (01) ==
LOC: PT 17:00
PROVIDERS: Visit Provider Orthopaedic Surgery
DX: M79.641 Pain in right hand (principal)
CPT/HCPCS: 97010; 97018; 97110; 97140; 97163; 97164

== ENCOUNTER → 2022-02-20 08:01 | Outpatient (CLI) | payer BC, SELFPAY ==
[2022-02-20 09:06] LABS: Basophils # 0.1 K/mm3 (0-0.2); Basophils % 0.9 % (0.1-2.0); Eosinophils # 0.2 K/mm3 (0.0-0.4); Eosinophils % 2.5 % (0.1-12.0); Hematocrit 39.5 % (37.0-47.0); Hemoglobin 12.9 g/dL (12.2-16.2); Lymphocytes # 2.1 K/mm3 (0.7-4.5); Mean Corpuscular HGB Conc 32.6 g/dL (31.8-35.4); Mean Corpuscular Hemoglobin 32.4 pg (27.0-31.2); Mean Corpuscular Volume 99.2 fl (81-99); Monocytes # 0.4 K/mm3 (0.1-1.0); Monocytes % 5.6 % (1.7-9.3); Neutrophils # 4.6 K/mm3 (1.8-7.8); Platelet Count 281 K/mm3 (142-424); Red Blood Count 3.98 M/mm3 (4.20-5.40); Red Cell Distribution Width 13.6 % (11.5-17.5); White Blood Count 7.4 K/mm3 (4.8-10.8)
[2022-02-20 09:52] LABS: Erythrocyte Sedimentation Rate 80 mm/hr (0-30)
[2022-02-20 09:58] LABS: Alanine Aminotransferase 13 U/L (12-78); Albumin Level 3.7 g/dl (3.5-5.0); Albumin/Globulin Ratio 1.4 (1.1-1.8); Alkaline Phosphatase 100 U/L (38-126); Anion Gap 12.9 mEq/L (5-15); Aspartate Amino Transferase 24 U/L (14-36); Bilirubin,Total 0.3 mg/dl (0.2-1.3); Blood Urea Nitrogen 20 mg/dl (7-17); Calcium 8.9 mg/dl (8.4-10.2); Carbon Dioxide 28 mmol/L (22.0-30.0); Chloride 103 mmol/L (98-107); Estimated Glomerular Filt Rate 65 ml/min (>60); GFR (African American) 79 ML/MIN (>60); Globulin 2.7 g/dL (1.3-3.2); Glucose 99 mg/dl (74-100); Potassium 4.9 mmoL/L (3.5-5.1); Sodium 139 mmol/L (136-145); Total Protein,Serum 6.4 g/dl (6.3-8.2)
[2022-02-20 10:04] LABS: C-Reactive Protein 14.6 mg/L (0-4)
== END ==
PROVIDERS: PCP Family Medicine; Visit Provider Internal Medicine Rheumatology
DX: M05.89 Other rheumatoid arthritis with rheumatoid factor of multiple sites (principal); E79.0 Hyperuricemia without signs of inflammatory arthritis and tophaceous disease; R53.83 Other fatigue; E66.9 Obesity, unspecified; Z68.41 Body mass index [BMI] 40.0-44.9, adult; Z79.899 Other long term (current) drug therapy
CPT/HCPCS: 36415; 80053; 85025; 85651; 86140

== ENCOUNTER → 2022-05-19 08:23 | Outpatient (CLI) | payer BC, SELFPAY ==
[2022-05-19 08:56] LABS: Basophils # 0.1 K/mm3 (0-0.2); Basophils % 1.2 % (0.1-2.0); Eosinophils # 0.1 K/mm3 (0.0-0.4); Eosinophils % 1.6 % (0.1-12.0); Hematocrit 39.7 % (37.0-47.0); Hemoglobin 13.4 g/dL (12.2-16.2); Lymphocytes # 2.2 K/mm3 (0.7-4.5); Lymphocytes % 29.7 % (10-50); Mean Corpuscular HGB Conc 33.7 g/dL (31.8-35.4); Mean Corpuscular Hemoglobin 32.1 pg (27.0-31.2); Mean Corpuscular Volume 95.3 fl (81-99); Mean Platelet Volume 8.3 fl (7.4-10.4); Monocytes # 0.3 K/mm3 (0.1-1.0); Monocytes % 4.5 % (1.7-9.3); Neutrophils # 4.7 K/mm3 (1.8-7.8); Neutrophils % 63.1 % (37.0-80.0); Platelet Count 324 K/mm3 (142-424); Red Blood Count 4.16 M/mm3 (4.20-5.40); White Blood Count 7.5 K/mm3 (4.8-10.8)
[2022-05-19 09:19] LABS: Erythrocyte Sedimentation Rate 59 mm/hr (0-30)
[2022-05-19 09:44] LABS: Alanine Aminotransferase 17 U/L (12-78); Albumin Level 4.2 g/dl (3.5-5.0); Albumin/Globulin Ratio 1.5 (1.1-1.8); Alkaline Phosphatase 123 U/L (38-126); Anion Gap 11.3 mEq/L (5-15); Aspartate Amino Transferase 23 U/L (14-36); Bilirubin,Total 0.5 mg/dl (0.2-1.3); Blood Urea Nitrogen 19 mg/dl (7-17); Carbon Dioxide 30 mmol/L (22.0-30.0); Chloride 104 mmol/L (98-107); Estimated Glomerular Filt Rate 58 ml/min (>60); GFR (African American) 70 ML/MIN (>60); Globulin 2.8 g/dL (1.3-3.2); Glucose 97 mg/dl (74-100); Potassium 5.3 mmoL/L (3.5-5.1); Sodium 140 mmol/L (136-145)
[2022-05-19 09:50] LABS: C-Reactive Protein 10.9 mg/L (0-4)
== END ==
PROVIDERS: PCP Family Medicine; Visit Provider Internal Medicine Rheumatology
DX: M05.89 Other rheumatoid arthritis with rheumatoid factor of multiple sites (principal); E79.0 Hyperuricemia without signs of inflammatory arthritis and tophaceous disease; R53.83 Other fatigue; Z68.41 Body mass index [BMI] 40.0-44.9, adult; Z79.899 Other long term (current) drug therapy
CPT/HCPCS: 36415; 80053; 85025; 85651; 86140

== ENCOUNTER → 2022-06-20 08:01 | Outpatient (CLI) | payer BC, SELFPAY ==
[2022-06-20 09:39] LABS: Basophils # 0.1 K/mm3 (0-0.2); Basophils % 1.2 % (0.1-2.0); Eosinophils # 0.1 K/mm3 (0.0-0.4); Eosinophils % 1.2 % (0.1-12.0); Hematocrit 38.8 % (37.0-47.0); Hemoglobin 12.4 g/dL (12.2-16.2); Lymphocytes # 2.8 K/mm3 (0.7-4.5); Lymphocytes % 29.5 % (10-50); Mean Corpuscular HGB Conc 31.9 g/dL (31.8-35.4); Mean Corpuscular Hemoglobin 31.8 pg (27.0-31.2); Mean Corpuscular Volume 99.7 fl (81-99); Mean Platelet Volume 7.8 fl (7.4-10.4); Monocytes # 0.4 K/mm3 (0.1-1.0); Monocytes % 4.3 % (1.7-9.3); Neutrophils % 63.8 % (37.0-80.0); Platelet Count 348 K/mm3 (142-424); Red Cell Distribution Width 14.7 % (11.5-17.5); White Blood Count 9.4 K/mm3 (4.8-10.8)
[2022-06-20 10:11] LABS: Erythrocyte Sedimentation Rate 77 mm/hr (0-30)
[2022-06-20 10:52] LABS: Alanine Aminotransferase 15 U/L (12-78); Albumin Level 3.9 g/dl (3.5-5.0); Albumin/Globulin Ratio 1.5 (1.1-1.8); Alkaline Phosphatase 85 U/L (38-126); Anion Gap 12.7 mEq/L (5-15); Aspartate Amino Transferase 19 U/L (14-36); Bilirubin,Total 0.6 mg/dl (0.2-1.3); Blood Urea Nitrogen 20 mg/dl (7-17); Calcium 8.9 mg/dl (8.4-10.2); Carbon Dioxide 32 mmol/L (22.0-30.0); Chloride 103 mmol/L (98-107); Estimated Glomerular Filt Rate 65 ml/min (>60); GFR (African American) 79 ML/MIN (>60); Globulin 2.6 g/dL (1.3-3.2); Glucose 97 mg/dl (74-100); Potassium 4.7 mmoL/L (3.5-5.1); Sodium 143 mmol/L (136-145); Total Protein,Serum 6.5 g/dl (6.3-8.2)
[2022-06-20 10:59] LABS: C-Reactive Protein 28.1 mg/L (0-4)
== END ==
PROVIDERS: PCP Family Medicine; Visit Provider Nurse Practitioner Family
DX: M05.89 Other rheumatoid arthritis with rheumatoid factor of multiple sites (principal); E79.0 Hyperuricemia without signs of inflammatory arthritis and tophaceous disease; R53.83 Other fatigue; E66.9 Obesity, unspecified; Z68.41 Body mass index [BMI] 40.0-44.9, adult; Z79.899 Other long term (current) drug therapy
CPT/HCPCS: 36415; 80053; 85025; 85651; 86140

== ENCOUNTER → 2022-08-08 09:06 | Outpatient (CLI) | payer BC, SELFPAY ==
[2022-08-08 10:05] LABS: Basophils # 0.1 K/mm3 (0-0.2); Basophils % 0.7 % (0.1-2.0); Eosinophils # 0.1 K/mm3 (0.0-0.4); Eosinophils % 0.6 % (0.1-12.0); Hematocrit 38.5 % (37.0-47.0); Hemoglobin 12.3 g/dL (12.2-16.2); Lymphocytes # 3.3 K/mm3 (0.7-4.5); Mean Corpuscular Hemoglobin 31.5 pg (27.0-31.2); Mean Corpuscular Volume 98.4 fl (81-99); Mean Platelet Volume 7.9 fl (7.4-10.4); Monocytes # 0.5 K/mm3 (0.1-1.0); Monocytes % 4.3 % (1.7-9.3); Neutrophils % 64.4 % (37.0-80.0); Platelet Count 397 K/mm3 (142-424); Red Blood Count 3.91 M/mm3 (4.20-5.40); Red Cell Distribution Width 14.2 % (11.5-17.5); White Blood Count 10.9 K/mm3 (4.8-10.8)
[2022-08-08 10:21] LABS: Chloride 103 mmol/L (98-107); Potassium 4.7 mmoL/L (3.5-5.1); Sodium 139 mmol/L (136-145)
[2022-08-08 10:23] LABS: Blood Urea Nitrogen 26 mg/dl (7-17); Estimated Glomerular Filt Rate 58 ml/min (>60); GFR (African American) 70 ML/MIN (>60)
[2022-08-08 10:24] LABS: Alanine Aminotransferase 14 U/L (12-78); Albumin Level 3.8 g/dl (3.5-5.0); Albumin/Globulin Ratio 1.5 (1.1-1.8); Alkaline Phosphatase 88 U/L (38-126); Anion Gap 11.7 mEq/L (5-15); Aspartate Amino Transferase 18 U/L (14-36); Bilirubin,Total 0.5 mg/dl (0.2-1.3); Calcium 8.7 mg/dl (8.4-10.2); Carbon Dioxide 29 mmol/L (22.0-30.0); Globulin 2.5 g/dL (1.3-3.2); Glucose 79 mg/dl (74-100); Total Protein,Serum 6.3 g/dl (6.3-8.2)
[2022-08-08 10:30] LABS: C-Reactive Protein 16.4 mg/L (0-4)
[2022-08-08 10:37] LABS: Erythrocyte Sedimentation Rate 70 mm/hr (0-30)
== END ==
PROVIDERS: PCP Family Medicine; Visit Provider Nurse Practitioner Family
DX: E79.0 Hyperuricemia without signs of inflammatory arthritis and tophaceous disease (principal); M05.89 Other rheumatoid arthritis with rheumatoid factor of multiple sites; R53.83 Other fatigue; Z68.41 Body mass index [BMI] 40.0-44.9, adult; E66.9 Obesity, unspecified; Z79.899 Other long term (current) drug therapy
CPT/HCPCS: 36415; 80053; 85025; 85651; 86140

== ENCOUNTER → 2022-09-19 08:42 | Outpatient (CLI) | payer BC, SELFPAY ==
[2022-09-19 09:08] LABS: Basophils % 0.5 % (0.1-2.0); Eosinophils # 0.1 K/mm3 (0.0-0.4); Eosinophils % 2.1 % (0.1-12.0); Hematocrit 38.9 % (37.0-47.0); Hemoglobin 12.5 g/dL (12.2-16.2); Lymphocytes # 1.7 K/mm3 (0.7-4.5); Mean Corpuscular HGB Conc 32.2 g/dL (31.8-35.4); Mean Corpuscular Hemoglobin 31.1 pg (27.0-31.2); Mean Corpuscular Volume 96.7 fl (81-99); Mean Platelet Volume 8.1 fl (7.4-10.4); Monocytes # 0.3 K/mm3 (0.1-1.0); Neutrophils # 4.4 K/mm3 (1.8-7.8); Neutrophils % 66.4 % (37.0-80.0); Platelet Count 324 K/mm3 (142-424); Red Blood Count 4.02 M/mm3 (4.20-5.40); Red Cell Distribution Width 14.5 % (11.5-17.5); White Blood Count 6.6 K/mm3 (4.8-10.8)
[2022-09-19 09:28] LABS: Chloride 105 mmol/L (98-107); Potassium 4.8 mmoL/L (3.5-5.1); Sodium 139 mmol/L (136-145)
[2022-09-19 09:31] LABS: Alanine Aminotransferase 18 U/L (12-78); Albumin Level 3.9 g/dl (3.5-5.0); Albumin/Globulin Ratio 1.6 (1.1-1.8); Alkaline Phosphatase 90 U/L (38-126); Anion Gap 8.8 mEq/L (5-15); Aspartate Amino Transferase 25 U/L (14-36); Bilirubin,Total 0.6 mg/dl (0.2-1.3); Blood Urea Nitrogen 19 mg/dl (7-17); Calcium 9.2 mg/dl (8.4-10.2); Carbon Dioxide 30 mmol/L (22.0-30.0); Erythrocyte Sedimentation Rate 72 mm/hr (0-30); Estimated Glomerular Filt Rate 65 ml/min (>60); GFR (African American) 79 ML/MIN (>60); Globulin 2.5 g/dL (1.3-3.2); Glucose 103 mg/dl (74-100); Total Protein,Serum 6.4 g/dl (6.3-8.2)
[2022-09-19 09:37] LABS: C-Reactive Protein 18.2 mg/L (0-4)
== END ==
LOC: LAB 08:43
PROVIDERS: PCP Family Medicine; Visit Provider Nurse Practitioner Family
DX: M05.89 Other rheumatoid arthritis with rheumatoid factor of multiple sites (principal); E79.0 Hyperuricemia without signs of inflammatory arthritis and tophaceous disease; R53.83 Other fatigue; Z68.41 Body mass index [BMI] 40.0-44.9, adult; Z79.899 Other long term (current) drug therapy
CPT/HCPCS: 36415; 80053; 85025; 85651; 86140

== ENCOUNTER 2022-11-15 12:55 | Emergency (ER) | payer BC, SELFPAY ==
[2022-11-15 12:57] VITALS: BP 147/66; PULSE 77; RESP 18; TEMP 36.7; O2SAT 100; BMI 42.0
--- NOTE | 2022-11-15 13:12 | PC.NURSE ---
DR CELIS AT BEDSIDE
--- NOTE | 2022-11-15 13:13 | XR_ITS ---
PROCEDURE INFORMATION: Exam: XR Left Knee Exam date and time: 11/15/2022 1:40 PM Age: 52 years old Clinical indication: Injury or trauma; Fall; Blunt trauma; Knee; Left; Additional info: Fall, knee pain TECHNIQUE: Imaging protocol: Radiologic exam of the left knee. Views: 3 views. COMPARISON: MR KNEE LT WO CON 10/09/2019 2:12 PM FINDINGS: Bones/joints: There are moderate degenerative changes involving the medial knee compartment with some joint space narrowing, subchondral sclerosis and marginal spurring. Remainder of the joint surfaces are preserved. No fracture or malalignment. Soft tissue: No significant joint effusion. IMPRESSION: Moderate degenerative changes medial knee compartment. No acute abnormalities.
--- NOTE | 2022-11-15 13:13 | CT_ITS ---
PROCEDURE INFORMATION: Exam: CT Head Without Contrast Exam date and time: 11/15/2022 1:55 PM Age: 52 years old Clinical indication: Injury or trauma; Fall; Blunt trauma (contusions or hematomas); Consciousness not specified; Additional info: Fall, head injury TECHNIQUE: Imaging protocol: Computed tomography of the head without contrast. Radiation optimization: All CT scans at this facility use at least one of these dose optimization techniques: automated exposure control; mA and/or kV adjustment per patient size (includes targeted exams where dose is matched to clinical indication); or iterative reconstruction. REPORTING DATA: Count of CT and Cardiac NM exams in prior 12 months: This patient has received 0 known CTs and 0 known cardiac nuclear medicine studies in the 12 months prior to the current study. COMPARISON: No relevant prior studies available. FINDINGS: Brain: Normal. No hemorrhage. No mass effect. Cortical sulci and white matter are unremarkable for age Cerebral ventricles: No ventriculomegaly. Paranasal sinuses: Visualized sinuses are unremarkable. No fluid levels. Mastoid air cells: Visualized mastoid air cells are well aerated. Bones/joints: Unremarkable. Soft tissues: Unremarkable. IMPRESSION: Normal CT examination of the head.
--- NOTE | 2022-11-15 13:13 | XR_ITS ---
PROCEDURE INFORMATION: Exam: XR Right Toe(s) Exam date and time: 11/15/2022 1:37 PM Age: 52 years old Clinical indication: Injury or trauma; Fall; Blunt trauma; Toes; Right and right lesser toe(s) TECHNIQUE: Imaging protocol: Radiologic exam of the right toes. Views: Minimum 2 views. COMPARISON: No relevant prior studies available. FINDINGS: Bones/joints: Postsurgical changes distal head 1st metatarsal presumed secondary to prior bunionectomy. Mild degenerative changes 1st MTP joint and 2nd MTP joint as well as the tarsometatarsal articulations. No fracture, dislocation or deformity detected. Soft tissues: Unremarkable. IMPRESSION: No acute bony abnormalities.
--- NOTE | 2022-11-15 13:21 | PC.NURSE ---
Rounded on patient; nothing need at this time. Call castellon within reach
[2022-11-15 13:35] LABS: Urine Pregnancy, HCG Qual. Negative (Negative)
--- NOTE | 2022-11-15 13:38 | HMH.EDGENADL ---
Discharge Plan Disposition Patient Disposition: Home, Self-Care Condition: Fair Chief Complaint: Fall Prescriptions Prescriptions: No Action triamterene-hydrochlorothiazid 37.5-25 mg tablet 1 tab PO DAILY folic acid 1 mg tablet 1 mg PO DAILY estradiol 0.5 mg tablet 0.5 mg PO DAILY lisinopril 20 mg tablet 20 mg PO DAILY atorvastatin 20 MG tablet 20 mg PO DAILY medroxyprogesterone 2.5 MG tablet 2.5 mg PO DAILY fluticasone propionate 120 SPRAY bottle 1 spr NS DAILY Qty: 1 0RF Rx Instructions: one spray in each nostril daily benzonatate 100 MG capsule 100 mg PO Q8HP PRN (Reason: Cough) Qty: 15 0RF Referrals Follow up/Referrals: John Whitaker MD [Primary Care Provider] - See instructions Activity Restrictions/Add. Instructions Additional Instructions/Restrictions: You have been evaluated for injuries after a fall. Head CT shows no skull fracture or bleed. X-rays show no fractures. You have been diagnosed with a closed head injury and a contusion of the left knee. Please take anti-inflammatory medication like your prescribed meloxicam or acetaminophen. Keep knee wrapped. Elevate your extremity. Follow-up with your primary care doctor. Return to the emergency department for any new or worsening symptoms Clinical Impressions Clinical Impression: Contusion of left knee, initial encounter, Fall, Closed head injury Instructions Patient Instructions: DI for Contusion, DI for Knee Pain, DI for Closed Head Injury Discharge ED Provider: Chio Mahoney Adult HPI General Chief complaint: Fall Stated complaint: AO [id number] knot on head,eye,left knee fall Time Seen by Provider: 11/15/22 13:01 Mode of Arrival: Wheelchair Source of Information: Patient Limitations: No Limitations Description of Symptoms (Recalled from ER Triage Doc. by RN): TRIP AND FALL AT HOME ABOUT 20 MINUTES FLYING SQU[employer]. REPORTS LEFT KNEE PAIN WITH ABRASION, PAIN TO LEFT INDEX FINGER, PAIN TO RIGHT FOURTH TOE AND BRUISING NOTED TO HAIR LINE ABOVE FOREHEAD. PT DENIES LOC. DOES NOT TAKE BLOOD THINNER History of Present Illness HPI narrative: 52-year-old female presenting to the emergency department with head injury, left knee injury after a fall. Incident happened just prior to arrival. She was trying to move a trash can when she tripped and fell. She landed on her left knee. She struck her head. Does not believe she lost consciousness, but she was stunned afterward. She has a headache that is described as constant, throbbing. Headache is located on the top of the head, slightly to the right. Has been constant since onset. No neck pain. No numbness, weakness, tingling in her arms or legs. She also has pain in her left knee that is described as achy. She has multiple abrasions over the patella. No pain in her foot or ankle. No chest pain, abdominal pain, back pain. She does not take blood thinners. No medications prior to arrival. Related Data Home Medications Medication Instructions Recorded Confirmed atorvastatin 20 mg tablet 20 mg PO DAILY Cholesterol 03/04/18 11/11/21 medroxyprogesterone 2.5 mg tablet 2.5 mg PO DAILY hormones 03/04/18 11/11/21 lisinopril 20 mg tablet 20 mg PO DAILY 09/30/21 11/11/21 estradiol 0.5 mg tablet 0.5 mg PO DAILY 11/11/21 11/11/21 folic acid 1 mg tablet 1 mg PO DAILY 11/11/21 11/11/21 triamterene 37.5 1 tab PO DAILY 11/11/21 11/11/21 mg-hydrochlorothiazide 25 mg tablet Previous Rx's Medication Instructions Recorded benzonatate 100 mg capsule 100 mg PO Q8HP PRN Cough #15 caps 10/26/21 fluticasone propionate 50 1 spr intranasal DAILY #1 ea 10/26/21 mcg/actuation nasal spray,suspension Allergies Allergy/AdvReac Type Severity Reaction Status Date / Time oxycodone [From Percocet] AdvReac Verified 11/11/21 11:02 [facility] Disclaimer: The information contained in this section may have been updated after the patient was seen, as
--- NOTE | 2022-11-15 14:26 | PC.NURSE ---
patient assisted to bathroom
--- NOTE | 2022-11-15 14:40 | PC.NURSE ---
Rounded on patient and family. Updated on plan of care. Call catsellon within reach
--- NOTE | 2022-11-15 15:15 | PC.NURSE ---
Addendum entered by Jill Baer RN 11/15/22 15:16: radiology states ct is being read at this time, xrays have been assigned but not in progress yet Original Note: contacted rad to check on status of radiology studies- states she will check on it
[2022-11-15 15:40] VITALS: BP 139/70; PULSE 74; RESP 17; TEMP 36.8; O2SAT 98
== END 2022-11-15 15:40 | disposition home or self-care (01) ==
PROVIDERS: Emergency Provider Emergency Medicine; PCP Family Medicine
DX: S09.8XXA Other specified injuries of head, initial encounter (principal); S80.02XA Contusion of left knee, initial encounter; W01.0XXA Fall on same level from slipping, tripping and stumbling without subsequent striking against object, initial encounter; R51.9 Headache, unspecified
CPT/HCPCS: 70450; 73562; 73660; 81025; 99284; 99285

== ENCOUNTER → 2022-12-31 12:58 | Outpatient (CLI) | payer BC, SELFPAY ==
--- NOTE | 2022-12-31 13:03 | MM_ITS ---
PROCEDURE INFORMATION: Exam: MG Bilateral Screening 3D Mammography Exam date and time: 12/31/2022 12:52 PM Age: 52 years old Clinical indication: Screening examination TECHNIQUE: Imaging protocol: Bilateral Screening tomosynthesis and 2D mammography including computer-aided detection (CAD) when performed. COMPARISON: 1. MG SCBI MM Dig screening mamm BI w/CAD 01/18/2018 4:01 PM 2. MG DMSB DIG MAMM-SCREEN ORTIZ 10/25/2015 10:54 AM FINDINGS: MAMMOGRAPHY: Breast composition: The breasts are almost entirely fatty. Mass: None. Architectural distortion: None. Calcifications: No suspicious calcifications. Asymmetric density: None. Skin thickening: None. Axillary adenopathy: None. IMPRESSION: No mammographic evidence of malignancy. Annual screening is recommended unless otherwise clinically indicated. ASSESSMENT: BI-RADS Category 1: Negative
== END ==
PROVIDERS: PCP Family Medicine; Visit Provider Family Medicine
DX: Z12.31 Encounter for screening mammogram for malignant neoplasm of breast (principal)
CPT/HCPCS: 77063; 77067

== ENCOUNTER 2023-09-08 08:43 | Outpatient (CLI) | payer BC, SELFPAY ==
--- NOTE | 2023-09-08 08:48 | XR_ITS ---
FINAL REPORT TECHNIQUE: Bone mineral density was calculated of the lumbar spine and hips. CLINICAL HISTORY: HORMONE REPLACEMENT THERAPY COMPARISON: 09/13/2020 FINDINGS: Using L1-4, the bone mineral density of the spine is 1.194 g/cm2, corresponding to T-score of 1.3. Using the right hip, the bone mineral density of the femoral neck is 0.753 g/cm?, corresponding to a T-score of -0.9. Using the left hip, the bone mineral density of the femoral neck is 0.867 g/cm2, corresponding to a T-score of 0.2. NOTE: T-score: Standard deviation compared with peak bone mass of young adult mean. *Following the recommendations of the International Society of Bone densitometry, classification of hip BMD is based on the lower of two T-scores; total hip or femoral neck. IMPRESSION: Normal bone density of the lumbar spine and bilateral hips. Reviewed, Interpreted and Dictated by Hernan Lepe III, MD Transcribed by Bruna Weeks Authenticated and [facility]
== END 2023-09-08 23:59 | disposition home or self-care (01) ==
LOC: RAD 08:44
PROVIDERS: PCP Family Medicine; Visit Provider Family Medicine
DX: Z79.890 Hormone replacement therapy (principal)
CPT/HCPCS: 77080

== ENCOUNTER 2024-09-01 12:39 | Outpatient (CLI) | payer BC, SELFPAY ==
--- NOTE | 2024-09-01 12:42 | US_ITS ---
PROCEDURE: US TRANSVAGINAL CLINICAL INDICATION: pcos COMPARISON: No exams were available for comparison FINDINGS: Transvaginal sonographic images of the pelvis were obtained. UTERUS: 5.0cm x 3.4cmx 2.1cm with a combined endometrial thickness of 1.6mm. There is a small amount of fluid within the endometrium. LEFT OVARY: 1.2cmx1.1cmx1.4cm with a volume of 1ml. Left ovary appears atrophic. RIGHT OVARY: 1.8 cmx 1.3cmx1.1cm with a volume of 1.4ml. The right ovary was difficult to visualize. Both ovaries are seen and appear normal. Doppler flow to both ovaries are seen. There is no fluid in the cul-de-sac. IMPRESSION: 1. Anteverted, small uterus. The endometrium is thin and there is a small amount of fluid within the endometrial cavity. 2. Both ovaries are seen and appear atrophic. The right ovary was more difficult to visualize. 3. No fluid in the cul-de-sac. Dictated by: Marshall Campa MD 09/02/2024 08:44 Marshall Campa MD in OV 09/02/2024 08:44
== END 2024-09-01 23:59 | disposition home or self-care (01) ==
LOC: RAD 12:41
PROVIDERS: PCP Family Medicine; Visit Provider Family Medicine
DX: E28.2 Polycystic ovarian syndrome (principal)
CPT/HCPCS: 76830

== ENCOUNTER 2025-04-06 11:25 | Outpatient (CLI) | payer BC, SELFPAY ==
--- OUTSIDE RECORDS SUMMARY | 2024-01-15 03:05 | XMS_ITS ---
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 Name Role Phone Kingston Whitaker Primary Care Provider Results Component Value Reference Range Notes CBC Venipuncture (in house) Reviewed date:01/18/2024 10:58:19 AM Interpretation: Performing Lab: Notes/Report: wbc 5.0 3.5 - 10 lymph 33.5 15 - 50 mid 6.6 2 - 15 gran 59.9 35 - 80 rbc 3.87 3.5 - 5.5 hgb 12.7 11.5 - 16.5 hct 37.3 35 - 55 mcv 96.4 75 - 100 mch 32.8 25 - 35 mchc 34.0 31 - 38 platlet 229 100 - 400 Glycohemoglobin A1c (in hous e) Reviewed date:01/28/2024 01:24:58 PM Interpretation:5.4 Performing Lab: Notes/Report: 5.4 glycohemoglobin 5.4% 5 - 6.5 % P-Comprehensive Metabolic Pa jocelin (CMP) Reviewed date:01/28/2024 01:24:57 PM Interpretation:gluc 104, 8 f/u OV Performing Lab: Notes/Report: CLIA: [id number] Brandan Benvaides MD, Labor And Employment Paralegal [address] [place] [address] , [address], [place] [address] Test performed by [facility], [facility] Sodium 141 135-145 mmol/L Potassium 4.6 3.5-5.3 mmol/L Chloride 104 97-108 mmol/L CO2 26 22-32 mmol/L Glucose 104 65-99 mg/dL BUN 18 6-20 mg/dL Creatinine 0.93 0.50-1.00 mg/dL Calcium 9.3 8.6-10.4 mg/dL eGFR by Creatinine 72 >59 mL/min/1.73m2 Protein 6.5 6.0-8.3 g/dL Albumin 4.2 3.5-5.3 g/dL Alkaline Phosphatase 88 35-121 IU/L ALT (SGPT) 18 <5-47 IU/L AST (SGOT) 22 <5-40 IU/L Bilirubin, Total 0.5 <0.2-1.2 mg/dL A/G Ratio 1.8 1.1-2.5 P-Lipid Panel Reviewed date:01/28/2024 01:24:57 PM Interpretation:Normal Performing Lab: Notes/Report: Test performed by [facility], [address] , [place] [address] Brandan Benavides MD, Labor And Employment Paralegal CLIA: [id number] Cholesterol 178 <200 mg/dL Triglycerides 80 <150 mg/dL HDL Cholesterol 54 >39 mg/dL Cholesterol / HDL Ratio 3.30 0.00-4.44 Ratio Non-HDL Cholesterol 124 <130 mg/dL LDL Cholesterol (Calculation) 108 <130 mg/dL LDL Cholesterol Levels* Less than 100 mg/dL Optimal 100 to 129 mg/dL Near Optimal/ Above Optimal 130 to 159 mg/dL Borderline High 160 to 189 mg/dL High 190 mg/dL and above Very High * Categories as recommended by the 2004 ATPIII guidelines LDL/HDL Ratio 2.0 <3.3 Ratio LDL Cholesterol Patient History Test Date: 01/15/2024 LDL Results: 108 Units: mg/dL % Change: - P-TSH Reviewed date:01/28/2024 01:24:58 PM Interpretation:Normal Performing Lab: Notes/Report: Test performed by [facility] [address] [place] [address] [place] [address] Brandan Benavides MD, Labor And Employment Paralegal CLIA: [id number] TSH 1.45 0.43-5.25 mU/L P-Uric Acid Reviewed date:01/28/2024 01:24:58 PM Interpretation:8 Performing Lab: Notes/Report: Test performed by [facility] [address] [place] [address] [address] Frederick C, [place] [address] Brandan Benavides MD, Labor And Employment Paralegal CLIA: [id number] Uric Acid 8.0 2.4-7.0 mg/dL REASON FOR VISIT blood work Medications Medication SIG (Take, Route, Frequency, Duration) Notes Start Date End Date Status medroxyPROGESTERone Acetate 2.5 MG TAKE 1 TABLET BY MOUTH ONCE DAILY FOR THE FIRST 7 DAYS OF EACH MONTH; Duration: 84 Active Triamterene-HCTZ 37.5-25 MG Take 1 table t by mouth once daily; Duration: 30 Active Atorvastatin Calcium 20 MG 1 tab(s) oral ly once a day (at bedtime); Duration: 90 days Active Estradiol 0.5 MG 1 tab(s) orally once a day Active Lisinopril 20 MG Take 1 tablet by mouth once daily; Duration: 90 days Active ZyrTEC Allergy 10 MG 1 tab(s) orally onc e a day 08/17/2014 Active Vitamin D3 50 MCG (2000 UT) 1 tab(s) ora lly once a day 03/19/2015 Active Tylenol Extra Strength 500 MG 2 tab(s) orally every 6 hours prn Active EQUATE ANTI-ACID 1 QD Act jeanne Multivitamin - 1 tab(s) orally once a day Active Meloxicam 15 MG 1 tablet Orally Once a day; Duration: 30 day(s) Active Cyclobenzaprine HCl 10 MG 1 tab(s) Orall y two times a day as needed Active Colcrys 0.6 MG 1 tab(s) orally bid 08/19/2021 Not-Taking Methotrexate 2.5 MG 6 tablets orally once a week Active Humira 40 MG/0.8ML 0.4 mL Subcutaneous every 14 days Active Diprolene 0.05 % 1 julio césar applied topically 2 times a day 06/10/2021 Not-Taking Encounters Encounter Location Date Provider Diagnosis [facility] [address] [facility] [address] [facility] [address] [place], [place] [id number] 01/15/2024 Kingston Whitaker Hormone replacement therapy Z79.890 ; Pure hypercholesterolemia E78.00 ; Primary hypertension I10 and Hyperuricemia E79.0 Assessments Encounter Date Diagnosis (ICD Code) Assessment Notes Treatment Notes Treatment Clinical Notes Section Notes 01/15/2024 Hormone replacement therapy (ICD-10 - Z79.890) 01/15/2024 Pure hypercholesterolemia (ICD-10 - E78.00) 01/15/2024 Primary hypertension (ICD-10 - I10) 01/15/2024 Hyperuricemia (ICD-1 0 - E79.0) Plan Of Treatment Next Appt Details Provider Name:Kingston Merrill er, 06/15/2025 09:30:00 AM, [address] [facility] [address] [facility], [address], [place], [id number], Progress Notes * Alma LIRADOB:1970 (55 yo F)Acc No.[id number]:01/15/2024 Patient: Alma PIERCE Provider: Kingston Whitaker M.D. :1970 A ge:53 Y S ex:Female Date:01/15/2024 Address:[address] [place] [address] [place], [id number] Subjective: * Chief Complaints: * 1 . Blood work. * Medical History: * Medications: T aking Cyclobenzaprine HCl 10 MG Tablet 1 tab(s) Orally two times a day as needed , Taking Meloxicam 15 MG Tablet 1 tablet Orally Once a day , Taking Humira 40 MG/0.8ML Prefilled Syringe Kit 0.4 mL Subcutaneous every 14 days , Taking Methotrexate 2.5 MG Tablet 6 tablets orally once a week , Taking Vitamin D3 50 MCG (2000 UT) Tablet 1 tab(s) orally once a day , Taking ZyrTEC Allergy 10 MG Tablet 1 tab(s) orally once a day , Taking Multivitamin - Tablet 1 tab(s) orally once a day , Taking EQUATE ANTI-ACID 1 QD , Taking Tylenol Extra Strength 500 MG Tablet 2 tab(s) orally every 6 hours prn , Taking Estradiol 0.5 MG Tablet 1 tab(s) orally once a day , Taking Atorvastatin Calcium 20 MG Tablet 1 tab(s) orally once a day (at bedtime) , Taking Triamterene-HCTZ 37.5-25 MG Tablet Take 1 tablet by mouth once daily , Taking medroxyPROGESTERone Acetate 2.5 MG Tablet TAKE 1 TABLET BY MOUTH ONCE DAILY FOR THE FIRST 7 DAYS OF EACH MONTH , Taking Lisinopril 20 MG Tablet Take 1 tablet by mouth once daily , Not-Taking Diprolene 0.05 % Ointment 1 julio césar applied topically 2 times a day , Not-Taking Colcrys 0.6 MG Tablet 1 tab(s) orally bid , Medication List reviewed and reconciled with the patient Objective: * Vitals: Assessment: * Assessment: 1. H ormone replacement therapy - Z79.890 2 . P ure hypercholesterolemia - E78.00 3 . P rimary hypertension - I10 4 . H yperuricemia - E79.0 Plan: * Treatment: Value Reference Range T SH 1.45 0.43-5.25 - mU/L * Kelly Sandoval 01/28/2024 1:24: 45 PM > see 01/27/2024 OV ?LAB: CBC Venipuncture (in house) (Collection Date & Time - 01/15/2024)* Value Reference Range w bc 5.0 3.5 - 10 * l ymph 33.5 15 - 50 * m id 6.6 2 - 15 * g ran 59.9 35 - 80 * r bc 3.87 3.5 - 5.5 * h gb 12.7 11.5 - 16.5 * h ct 37.3 35 - 55 * m cv 96.4 75 - 100 * m ch 32.8 25 - 35 * m chc 34.0 31 - 38 * p latlet 229 100 - 400 * Trena Johnson 01/15/2024 8:33 :11 AM > ?LAB: Glycohemoglobin A1c (in house) (Collection Date & Time - 01/15/2024)? 5.4* Value Reference Range g lycohemoglobin 5.4% 5 - 6.5 % * Trena Johnson 01/15/2024 8:28 :04 AM > Kelly Sandoval 01/28/2024 1:24:45 PM > see 01/27/2024 OV 2.?Pure hypercholesterolemia?LAB: P-Lipid Panel (Collection Date & Time - 01/15/2024 08:07 AM)?Normal* Value Reference Range C holesterol / HDL Ratio 3.30 0.00-4.44 - Ratio * C holesterol 178 <200 - mg/dL * H DL Cholesterol 54 >39 - mg/dL * L DL Cholesterol (Calculation) 108 <130 - mg/d L * L DL/HDL Ratio 2.0 <3.3 - Ratio * N on-HDL Cholesterol 124 <130 - mg/dL * T riglycerides 80 <150 - mg/dL * Kelly Sandoval 01/28/2024 1:24: 45 PM > see 01/27/2024 OV 3.?Primary hypertension?LAB: P-Comprehensive Metabolic Panel (CMP) (Collection Date & Time - 01/15/2024 08:07 AM)?gluc 104, 01/26 f/u OV* Value Reference Range A /G Ratio 1.8 1.1-2.5 - * A lbumin 4.2 3.5-5.3 - g/dL * A lkaline Phosphatase 88 35-121 - IU/L * A LT (SGPT) 18 <5-47 - IU/L * A ST (SGOT) 22 <5-40 - IU/L * B ilirubin, Total 0.5 <0.2-1.2 - mg/dL * B UN 18 6-20 - mg/dL * C alcium 9.3 8.6-10.4 - mg/dL * C hloride 104 97-108 - mmol/L * C O2 26 22-32 - mmol/L * C reatinine 0.93 0.50-1.00 - mg/dL * G lucose 104 H 65-99 - mg/dL * P otassium 4.6 3.5-5.3 - mmol/L * S odium 141 135-145 - mmol/L * P rotein 6.5 6.0-8.3 - g/dL * e GFR by Creatinine 72 >59 - mL/min/1.73m2 * Kelly Sanodval 01/28/2024 1:24: 45 PM > see 01/27/2024 OV ?LAB: P-TSH (Collection Date & Time - 01/15/2024 08:07 AM)?Normal* Value Reference Range T SH 1.45 0.43-5.25 - mU/L * Kelly Sandoval 01/28/2024 1:24: 45 PM > see 01/27/2024 OV 4.?Hyperuricemia?LAB: P-Uric Acid (Collection Date & Time - 01/15/2024 08:07 AM)?8* Value Reference Range U jennyfer Acid 8.0 H 2.4-7.0 - mg/dL * Kelly Sandoval 01/28/2024 1:24: 45 PM > see 01/27/2024 OV * Procedure Codes: 8 5025 CBC WITH AUTO DIFF, 14185 VENIPUNCT, ROUTINE*, 93427 CAPILLARY BLOOD DRAW, 18006 GLYCATED HEMOGLOBIN TEST, Modifiers: QW * Images: Billing Information: * Visit Code: * Procedure Codes: 30387 CBC WITH AUTO DIFF. 19927 VENIPUNCT, ROUTINE*. 24856 CAPILLARY BLOOD DRAW. 82463 GLYCATED HEMOGLOBIN TEST. Modifiers: QW * Electronic signature of Kingston Whitaker MD on 04/06/2025 at 11:28 AM EST Sign off status: Pending * Provider: Kingston Whitaker M.D. Date: 0 01/15/2024 Generated for Mark martel/Ellis/eTransmitting on: 1 06/06/2024 11:28 AM EST
--- OUTSIDE RECORDS SUMMARY | 2024-01-27 09:00 | XMS_ITS ---
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 Name Role Phone Kingston Whitaker Primary Care Provider [phone] Allergies Allergen (clinical drug ingredient) Drug/Non Drug Allergy documented on EMR Reaction Allergy Type Onset Date Status acetaminophen / oxycodone Percocet pains in stomach and vomiting Drug Allergy Active Reason For Referral Reason consult for varicose veins Diagnosis 1 Simple varicose vein s (I83.90) Referral Organization [facility] Referring Provider First Name Kingston Cano Referring Provider Last Name Sherman Referring Provider Speciality Family Pra ctice Referred Provider Specialty Vascular Mesha yi General Notes Jayne Munoz 01/27/20 24 2:43:52 PM > faxed to [facility] Tammy Hebert Brynn 02/03/2024 11:01:45 AM > Eduardo from said they refer these patients out to [facility]; I sent the referral today Referral Priority Routine REASON FOR VISIT 5 months with fasting labs, See 01/15/2024 lab results with elevated uric acid, Needs mammogram & shingles vaccine Medications Medication SIG (Take, Route, Frequency, Duration) Notes Start Date End Date Status Esomeprazole Magnesium 20 MG 1 capsule Orally Once a day; Duration: 30 day(s) 01/27/2024 Active Allopurinol 100 MG 1 tablet Orally Once a day; Duration: 30 day(s) 01/27/2024 Active medroxyPROGESTERone Acetate 2.5 MG TAKE 1 TABLET BY MOUTH ONCE DAILY FOR THE FIRST 7 DAYS OF EACH MONTH; Duration: 84 Active Estradiol 0.5 MG 1 tab(s) orally once a day; Duration: 90 days Active Lisinopril 20 MG Take 1 tablet by mickie once daily; Duration: 90 days Active Triamterene-HCTZ 37.5-25 MG take 1 table t Orally Once a day; Duration: 30 days Active Vitamin D3 50 MCG (1999 UT) 1 tab(s) ora lly once a day 03/19/2015 Active ZyrTEC Allergy 10 MG 1 tab(s) orally onc e a day 08/17/2014 Active Multivitamin - 1 tab(s) orally once a day Active Tylenol Extra Strength 500 MG 2 tab(s) orally every 6 hours prn Active Atorvastatin Calcium 20 MG 1 tab(s) oral ly once a day (at bedtime); Duration: 90 days Active DULoxetine HCl 30 MG 1 capsule Orally On ce a day; Duration: 30 day(s) Active Cyclobenzaprine HCl 10 MG 1 tab(s) Orall y two times a day as needed Active Humira 40 MG/0.8ML 0.4 mL Subcutaneous every 14 days Active Methotrexate 2.5 MG 6 tablets orally onc e a week Active Clotrimazole 10 MG 1 cindy while on immunosuppressive medicine Mouth/Throat 5 times a day; Duration: 10 day(s) 01/27/2024 Active Immunizations Vaccine Route Administration Date Status Comme nts Shingrix IM Intramuscular 01/27/2024 Administered Problems Problem Type SNOMED Code ICD Code Onset Dates Problem Status W/U Status Risk Notes Problem Gastroesophageal reflux disease (disorder) (074499697) Chronic GERD (K21.9) Active confirmed Vital Signs Blood pressure systolic 120 mm Hg 01/27/20 24 Blood pressure diastolic 70 mm Hg 024 Heart Rate 81 /min 01/27/2024 Height 65.25 in 01/27/2024 Weight 245.8 lbs 01/27/2024 BMI 40.59 kg/m2 01/27/2024 Encounters Encounter Location Date Provider Diagnosis [facility] [address] [place], [place] [id number] 01/27/2024 Kingston Whitaker Pure hypercholestero lemia E78.00 ; Primary hypertension I10 ; Hormone replacement therapy Z79.890 ; Hyperuricemia E79.0 ; Encounter for vaccination Z23 ; FHx: coronary artery disease Z82.49 ; Chronic GERD K21.9 ; Rheumatoid arthritis with positive rheumatoid factor, involving unspecified site M05.9 ; Simple varicose veins I83.90 and Oral candidiasis B37.0 Assessments Encounter Date Diagnosis (ICD Code) Assessment Notes Treatment Notes Treatment Clinical Notes Section Notes 01/27/2024 Pure hypercholesterolemia (ICD-10 - E78.00) 01/27/2024 Primary hypertension (ICD-10 - I10) 01/27/2024 Hormone replacement therapy (ICD-10 - Z79.890) 01/27/2024 Hyperuricemia (ICD-1 0 - E79.0) 01/27/2024 Encounter for vaccination (ICD-10 - Z23) 01/27/2024 FHx: coronary artery disease (ICD-10 - Z82.49) 01/27/2024 Chronic GERD (ICD-10 - K21.9) 01/27/2024 Rheumatoid arthritis with positive rheumatoid factor, involving unspecified site (ICD-10 - M05.9) 01/27/2024 Simple varicose vein s (ICD-10 - I83.90) 01/27/2024 Oral candidiasis (IC D-10 - B37.0) Plan Of Treatment Medication Medication Name Sig Start Date Stop Date Notes Esomeprazole Magnesium 20 MG 1 capsule Orally Once a day; Duration: 30 day(s) 01/27/2024 Allopurinol 100 MG 1 tablet Orally Once a day; Duration: 30 day(s) 01/27/2024 Clotrimazole 10 MG 1 cindy while on immunosuppressive medicine Mouth/Throat 5 times a day; Duration: 10 day(s) 01/27/2024 Referrals Referral Date Details 01/27/2024 01/27/2024, consult for varicose veins Next Appt Details Follow Up: 2 Months, Reason: Provider Name:Kingston de la fuente, 06/15/2025 09:30:00 AM, [address], [address], [place], [id number], Progress Notes * Jonah SAENZ:1970 (55 yo F)Acc No.[id number]:01/27/2024 Progress Notes Patient: Alma PIERCE Provider: Kingston Whitaker M.D. :1970 A ge:53 Y S ex:Female Date:01/27/2024 Address:[place], [id number] Subjective: * Chief Complaints: * 1 . 5 months with fasting labs. 2. See 01/15/2024 lab results with elevated uric acid, Needs mammogram & shingles vaccine. * HPI: C ardiology: The patient is here for a check up on Hypertension and Hyperlipidemia. Pt states she had fasting labs done 3 weeks ago 01/15/24. See pt labs. Uric Acid was elevated at 8. Pt states she is needing to discuss an Rx for GERD medication. Pt states the OTC is too expensive. Pt states since she has a strong family history of heart disease she would like to discuss getting her heart checked out. Denies : Chest Pain. D enies : Short of Breath. D enies : Dizziness. D enies : Palpitations. * ROS: D ERMATOLOGY: no R renita. n o H heriberto. G ASTROENTEROLOGY: no N ausea. n o V omiting. n o D iarrhea.? U ROLOGY: no D ifficulty urinating. n o B lood in urine. * Medical History: H iatal hernia, Flu shot 02/2020 at work, covid vaccine J&J - july 2020. * Surgical History: w isdom teeth extractions 1992, bunionectomy, right 2001, tendonitis left , X2 1999, colonoscopy, Dr. Gonzalez 10/2017. * Family History: F ather: , diagnosed with Heart Disease. M other: , diagnosed with Heart Disease, Stroke. 1 brother(s) , 1 sister(s) - healthy. . family history of heart disease. * Social History: C URRENT TOBACCO USE S moking Status: P atient does NOT smoke. C affeine: no. Home smoke detector use: yes. Marital Status: Single. Alcohol: No. * Medications: T aking DULoxetine HCl 30 MG Capsule Delayed Release Particles 1 capsule Orally Once a day , Taking Cyclobenzaprine HCl 10 MG Tablet 1 tab(s) Orally two times a day as needed , Taking Humira 40 MG/0.8ML Prefilled Syringe [...] tab(s) orally once a day , Taking Tylenol Extra Strength 500 MG Tablet 2 tab(s) orally every 6 hours prn , Taking Atorvastatin Calcium 20 MG Tablet 1 tab(s) orally once a day (at bedtime) , Taking medroxyPROGESTERone Acetate 2.5 MG Tablet TAKE 1 TABLET BY MOUTH ONCE DAILY FOR THE FIRST 7 DAYS OF EACH MONTH , Taking Estradiol 0.5 MG Tablet 1 tab(s) orally once a day , Taking Lisinopril 20 MG Tablet Take 1 tablet by mouth once daily , Taking Triamterene-HCTZ 37.5-25 MG Tablet take 1 tablet Orally Once a day , Discontinued Meloxicam 15 MG Tablet 1 tablet Orally Once a day , Discontinued EQUATE ANTI-ACID 1 QD , Discontinued Diprolene 0.05 % Ointment 1 julio césar applied topically 2 times a day , Discontinued Colcrys 0.6 MG Tablet 1 tab(s) orally bid , Medication List reviewed and reconciled with the patient * Allergies: P ercocet: pains in stomach and vomiting. Objective: * Vitals: W t:245.8, Temp:98.3, BP:120/70, HR:81, Nurse:ROSE, Ht: 65.25, BMI:40.59. * Examination: G eneral Examination: General Appearance: N AD. H EENT: t hin hair. O ral cavity: n o lesions, mucosa moist and WNL, no erythema. N endy: s upple, no lymphadenopathy. C hest: n ormal shape and expansion. H eart: R SR. L ungs: c lear to auscultation. A bdomen: obese, soft and nontender. N eurologic Exam: I ntact, gait normal. S kin: n ormal, no rash. P eripheral pulses: n ormal . E xtremities:?lipidema, trace leg edema, mild MP joint prominence. Assessment: * Assessment: 1. P ure hypercholesterolemia - E78.00 (Primary) 2 . P rimary hypertension - I10 3 . H ormone replacement therapy - Z79.890 4 . H yperuricemia - E79.0 5 . E ncounter for vaccination - Z23 6 . F Hx: coronary artery disease - Z82.49 7 . C hronic GERD - K21.9 8 . R heumatoid arthritis with positive rheumatoid factor, involving unspecified site - M05.9 9 . S imple varicose veins - I83.90 1 0. O ral candidiasis - B37.0 Plan: * Treatment: 2. C hronic GERD Start Esomeprazole Magnesium Capsule Delayed Release, 20 MG, 1 capsule, Orally, Once a day, 30 day(s), 30, Refills 5. 3. S imple varicose veins Referral To:Vascular Surgery Reason:consult for varicose veins 4. O ral candidiasis Start Clotrimazole Cindy, 10 MG, 1 cindy while on immunosuppressive medicine, Mouth/Throat, 5 times a day, 10 day(s), 50, Refills 2. * Immunizations: Shingrix : 0.5 (Route: Intramuscular) given by Theresa Jo on Left Deltoid (Encounter for vaccination) * Procedure Codes: 3 074F SYST BP LT 130 MM HG, 3078F DIAST BP < 80 MM HG * Follow Up: 2 Months * Images: Billing Information: * Visit Code: 26988 Office Visit, Est Pt., Level 4. * Procedure Codes: 3074F SYST BP LT 130 MM HG. 3078F DIAST BP < 80 MM HG. * Electronic signature of Kingston Whitaker MD on 04/06/2025 at 11:28 AM EST Sign off status: Pending * Provider: Kingston Whitaker M.D. Date: 0 01/27/2024 Generated for Mark martel/Ellis/Bernieitting on: 06/06/2024 11:28 AM EST History and Physical Notes * HPI (History of Present Illness) Category Sub-Category Detail Notes Category Not es Cardiology Short of Breath Chest Pain Palpitations Dizziness Examination Category Sub-Category Detail Notes Category Not es General Examination HEENT: thin hair Heart: RSR Lungs: clear to auscultatio n Abdomen: obese, soft and nont chiara Extremities: lipidema, trace leg edema, mild MP joint prominence General Appearance: NAD Skin: normal, no rash Neurologic Exam: Intact, gait normal Neck: supple, no lymphaden opathy Oral cavity: no lesions, mucosa m oist and WNL, no erythema Peripheral pulses: normal Chest: normal shape and exp ansion Consultation Request Notes Referral Date Referring Provider Referred Provider Not es 01/27/2024 Kingston Whitaker , consult fo r varicose veins
--- OUTSIDE RECORDS SUMMARY | 2024-03-31 06:30 | XMS_ITS ---
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 Name Role Phone Kingston Whitaker Primary Care Provider [phone] Allergies Allergen (clinical drug ingredient) Drug/Non Drug Allergy documented on EMR Reaction Allergy Type Onset Date Status acetaminophen / oxycodone Percocet pains in stomach and vomiting Drug Allergy Active Results Component Value Reference Range Notes CBC Fingerstick (in house) Reviewed date:04/04/2024 11:41:40 AM Interpretation: Performing Lab: Notes/Report: wbc 4.0 3.5 - 10 lym 44.5 15 - 50 mid 9.0 2 - 15 gran 46.5 35 - 80 rbc 3.95 3.5 - 5.5 hgb 13.0 11.5 - 16.5 hct 38.8 35 - 55 mcv 98.0 75 - 100 mch 32.9 25 - 35 mchc 33.5 31 - 38 plat 213 100 - 400 P-Comprehensive Metabolic Pa jocelin (CMP) Reviewed date:04/05/2024 04:32:45 PM Interpretation:Satisfactory Performing Lab: Notes/Report: CLIA: [id number] Brandan Benavides MD, Manager [address] [place] [address] , [address], [place] [address] Test performed by [employer], [facility] Sodium 143 135-145 mmol/L Potassium 5.2 3.5-5.3 mmol/L Chloride 104 97-108 mmol/L CO2 22 22-32 mmol/L Glucose 107 65-99 mg/dL BUN 20 6-20 mg/dL Creatinine 0.86 0.50-1.00 mg/dL Calcium 9.2 8.6-10.4 mg/dL eGFR by Creatinine 79 >59 mL/min/1.73m2 Protein 7.0 6.0-8.3 g/dL Albumin 4.0 3.5-5.3 g/dL Alkaline Phosphatase 102 35-121 IU/L ALT (SGPT) 18 <5-47 IU/L AST (SGOT) 21 <5-40 IU/L Bilirubin, Total 0.4 <0.2-1.2 mg/dL A/G Ratio 1.3 1.1-2.5 REASON FOR VISIT 2 months, Needs labs & mammogram Medications Medication SIG (Take, Route, Frequency, Duration) Notes Start Date End Date Status Cyclobenzaprine HCl 10 MG 1 tab(s) Orall y two times a day as needed Active DULoxetine HCl 30 MG 1 capsule Orally On ce a day; Duration: 30 day(s) Active Humira 40 MG/0.8ML 0.4 mL Subcutaneous every 14 days Active Triamterene-HCTZ 37.5-25 MG take 1 table t Orally Once a day; Duration: 30 days Active Atorvastatin Calcium 20 MG 1 tab(s) oral ly once a day (at bedtime); Duration: 90 days Active Clotrimazole 10 MG 1 cindy while on immunosuppressive medicine Mouth/Throat 5 times a day; Duration: 10 day(s) 01/27/2024 Active Allopurinol 100 MG 1 tablet Orally Once a day; Duration: 30 day(s) 01/27/2024 Active medroxyPROGESTERone Acetate 2.5 MG TAKE 1 TABLET BY MOUTH ONCE DAILY FOR THE FIRST 7 DAYS OF EACH MONTH; Duration: 84 Active Esomeprazole Magnesium 20 MG 1 capsule Orally Once a day; Duration: 30 day(s) 01/27/2024 Active Lisinopril 20 MG Take 1 tablet by mickie th once daily; Duration: 90 days Active Vitamin D3 50 MCG (1999) 1 tab(s) ora lly once a day 03/19/2015 Active Multivitamin - 1 tab(s) orally once a day Active ZyrTEC Allergy 10 MG 1 tab(s) orally onc e a day 08/17/2014 Active Estradiol 0.5 MG 1 tab(s) orally once a day; Duration: 90 days Active Tylenol Extra Strength 500 MG 2 tab(s) orally every 6 hours prn Active Methotrexate 2.5 MG 6 tablets orally onc e a week Active Vital Signs Blood pressure systolic 130 mm Hg 03/31/20 24 Blood pressure diastolic 80 mm Hg 024 Heart Rate 62 /min 03/31/2024 Height 65.25 in 03/31/2024 Weight 243.0 lbs 03/31/2024 BMI 40.12 kg/m2 03/31/2024 Encounters Encounter Location Date Provider Diagnosis [facility] [address] [address] [place] [id number] 03/31/2024 Kingston Whitaker Primary hypertension I10 ; Hyperuricemia E79.0 ; Rheumatoid arthritis with positive rheumatoid factor, involving unspecified site M05.9 and Chronic GERD K21.9 Assessments Encounter Date Diagnosis (ICD Code) Assessment Notes Treatment Notes Treatment Clinical Notes Section Notes 03/31/2024 Primary hypertension (ICD-10 - I10) 03/31/2024 Hyperuricemia (ICD-10 - E79.0) 03/31/2024 Rheumatoid arthritis with positive rheumatoid factor, involving unspecified site (ICD-10 - M05.9) 03/31/2024 Chronic GERD (ICD-10 - K21.9) Plan Of Treatment Next Appt Details Follow Up: 4 Months, Reason: Provider Name:Kingston Merrill er, 06/15/2025 09:30:00 AM, [address], [address], [place], [id number], Progress Notes * Alma LIRADOB:1970 (55 yo F)Acc No.[id number]:03/31/2024 Progress Notes Patient: Alma PIERCE Provider: Kingston Whitaker M.D. :1970 A ge:54 Y S ex:Female Date:03/31/2024 Address:[address] [place], [place] [address]RAM[place], [id number] Subjective: * Chief Complaints: * 1 . 2 months. 2. Needs labs & mammogram. * HPI: H PI: The pt is here for a follow up on elevated uric acid. Pt states the Allopurinol has helped some. Pt states she saw Rheumatology and he is ok with her taking the Allopurinol. Pt states he took a flu vaccine last wednesday and has had some cough and congestion in the evenings since. * ROS: D ERMATOLOGY: no R renita. [...] Heart Disease. M other: , diagnosed with Stroke, Heart Disease. 1 brother(s) , 1 sister(s) - healthy. [...] tablet by mouth once daily , Taking Esomeprazole Magnesium 20 MG Capsule Delayed Release 1 capsule Orally Once a day , Taking Allopurinol 100 MG Tablet 1 tablet Orally Once a day , Taking Clotrimazole 10 MG Cindy 1 cindy while on immunosuppressive medicine Mouth/Throat 5 times a day , Taking medroxyPROGESTERone Acetate 2.5 MG Tablet TAKE 1 TABLET BY MOUTH ONCE DAILY FOR THE FIRST 7 DAYS OF EACH MONTH , Taking Atorvastatin Calcium 20 MG Tablet 1 tab(s) orally once a day (at bedtime) , Taking Triamterene-HCTZ 37.5-25 MG Tablet take 1 tablet Orally Once a day , Medication List reviewed and reconciled with the patient * Allergies: P ercocet: pains in stomach and vomiting. Objective: * Vitals: W t:243.0, Temp:97.9, BP:130/80, HR:62, Nurse:ROSE, Ht: 65.25, BMI:40.12. * Examination: G eneral Examination: General Appearance: [...] joint prominence. Assessment: * Assessment: 1. P rimary hypertension - I10 (Primary) 2 . H yperuricemia - E79.0 ? 3 . R heumatoid arthritis with positive rheumatoid factor, involving unspecified site - M05.9 4 . C hronic GERD - K21.9 Plan: * Treatment: Value Reference Range A /G Ratio 1.3 1.1-2.5 - * A lbumin 4.0 3.5-5.3 - g/dL * A lkaline Phosphatase 102 35-121 - IU/L * A LT (SGPT) 18 <5-47 - IU/L * A ST (SGOT) 21 <5-40 - IU/L * B ilirubin, Total 0.4 <0.2-1.2 - mg/dL * B UN 20 6-20 - mg/dL * C alcium 9.2 8.6-10.4 - mg/dL * C hloride 104 97-108 - mmol/L * C O2 22 22-32 - mmol/L * C reatinine 0.86 0.50-1.00 - mg/dL * G lucose 107 H 65-99 - mg/dL * P otassium 5.2 3.5-5.3 - mmol/L * S odium 143 135-145 - mmol/L * P rotein 7.0 6.0-8.3 - g/dL * e GFR by Creatinine 79 >59 - mL/min/1.73m2 * Theresa Jo 04/05/2024 4:3 2:23 PM > , Left voicemail informing of normal lab results ?LAB: CBC Fingerstick (in house) (Collection Date & Time - 03/31/2024)* Value Reference Range w bc 4.0 3.5 - 10 * l ym 44.5 15 - 50 * m id 9.0 2 - 15 * g ran 46.5 35 - 80 * r bc 3.95 3.5 - 5.5 * h gb 13.0 11.5 - 16.5 * h ct 38.8 35 - 55 * m cv 98.0 75 - 100 * m ch 32.9 25 - 35 * m chc 33.5 31 - 38 * p lat 213 100 - 400 * PattiAdilene 03/31/2024 12:17 :58 PM > * Procedure Codes: 3 6416 CAPILLARY BLOOD DRAW, 53853 CBC WITH AUTO DIFF * Follow Up: 4 Months * Images: Billing Information: * Visit Code: 90615 Office Visit, Est Pt., Level 4. * Procedure Codes: 40810 CAPILLARY BLOOD DRAW. 76054 CBC WITH AUTO DIFF. * Electronic signature of Kingston Whitaker MD on 04/06/2025 at 11:29 AM EST Sign off status: Pending * Provider: Kingston Whitaker M.D. Date: 05/31/2023 Generated for Mark martel/Ellis/eTransmitting on: 06/06/2024 11:29 AM EST History and Physical Notes * Examination Category Sub-Category Detail Notes Category Not [...]
--- OUTSIDE RECORDS SUMMARY | 2024-12-08 04:45 | XMS_ITS ---
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 Name Role Phone Kingston Whitaker Primary Care Provider Allergies Allergen (clinical drug ingredient) Drug/Non Drug Allergy documented on EMR Reaction Allergy Type Onset Date Status acetaminophen / oxycodone Percocet pains in stomach and vomiting Drug Allergy Active REASON FOR VISIT 4 month check, Needs mammogram in December Medications Medication SIG (Take, Route, Frequency, Duration) Notes Start Date End Date Status Allopurinol 100 MG 1 tablet Orally Once a day; Duration: 30 day(s) 01/27/2024 Not-Taking Esomeprazole Magnesium 20 MG Take 1 capsule by mouth once daily; Duration: 30 Active Triamterene-HCTZ 37.5-25 MG take 1 tablet Orally Once a day; Duration: 90 days Active Estradiol 0.5 MG Take 1 tablet by mickie once daily; Duration: 90 Active medroxyPROGESTERone Acetate 2.5 MG TAKE 1 TABLET BY MOUTH ONCE DAILY FOR THE FIRST 7 DAYS OF EACH MONTH; Duration: 84 days Active Atorvastatin Calcium 20 MG 1 tablet Orally Once a day; Duration: 90 days Active Lisinopril 20 MG Take 1 tablet by mickie once daily; Duration: 90 days Active Tylenol Extra Strength 500 MG 2 tab(s) orally every 6 hours prn Active Multivitamin - 1 tab(s) orally once a day Active Clotrimazole 10 MG 1 cindy while on immunosuppressive medicine Mouth/Throat 5 times a day; Duration: 10 day(s) 01/27/2024 Active ZyrTEC Allergy 10 MG 1 tab(s) orally onc e a day 08/17/2014 Active Vitamin D3 50 MCG (1999 [place]) 1 tab(s) orally once a day 03/19/2015 Active Methotrexate 2.5 MG 6 tablets orally onc e a week Active Humira 40 MG/0.8ML 0.4 mL Subcutaneous every 14 days Active Cyclobenzaprine HCl 10 MG 1 tab(s) Orall y two times a day as needed Active DULoxetine HCl 30 MG 1 capsule Orally On ce a day; Duration: 30 day(s) Active Vital Signs Blood pressure systolic 124 mm Hg 12/09/19 25 Blood pressure diastolic 62 mm Hg 025 Heart Rate 80 /min 12/08/2024 Height 65.25 in 12/08/2024 Weight 252.2 lbs 12/08/2024 BMI 41.64 kg/m2 12/08/2024 Encounters Encounter Location Date Provider Diagnosis [facility] [address] [facility] [address] [id number] 12/08/2024 Kingston Whitaker Polycystic ovary E28 .2 ; Hormone replacement therapy Z79.890 ; Pure hypercholesterolemia E78.00 ; Lymphedema I89.0 ; Lipoedema R60.9 and Rheumatoid arthritis with positive rheumatoid factor, involving unspecified site M05.9 Assessments Encounter Date Diagnosis (ICD Code) Assessment Notes Treatment Notes Treatment Clinical Notes Section Notes 12/08/2024 Polycystic ovary (IC D-10 - E28.2) 12/08/2024 Hormone replacement therapy (ICD-10 - Z79.890) 12/08/2024 Pure hypercholesterolemia (ICD-10 - E78.00) 12/08/2024 Lymphedema (ICD-10 - I89.0) 12/08/2024 Lipoedema (ICD-10 - R60.9) 12/08/2024 Rheumatoid arthritis with positive rheumatoid factor, involving unspecified site (ICD-10 - M05.9) Plan Of Treatment Medication Medication Name Sig Start Date Stop Date Notes Atorvastatin Calcium 20 MG 1 tablet Oral ly Once a day; Duration: 90 days Next Appt Details Follow Up: 6 Months, Reason: Provider Name:Kingston de la fuente, 06/15/2025 09:30:00 AM, [address], [address], [place], [place], [id number], Progress Notes * Alma LIRADOB:1970 (55 yo F)Acc No.[id number]:12/08/2024 Progress Notes Patient: Alma PIERCE Provider: Kingston Whitaker M.D. :1970 A ge:54 Y S ex:Female Date:12/08/2024 Address:[place], [id number] Subjective: * Chief Complaints: * 1 . 4 month check. 2. Needs mammogram in December. * HPI: C ardiology: Pt here Hyperlipidemia and Hypertension. Pt is fasting. Pt been breaking out in a sweat and she thinks it is her sugar. Had vascular surgery on her varicose veins in July, Dr. Cano. A llergy/Asthma: Pt wants to see if she can get allergy meds. * ROS: D ERMATOLOGY: no R renita. [...] left , X2 1999, colonoscopy, Dr. Gonzalez 10/2017, Vascular surgery for varicose veins 08/02/24. * Family History: F ather: , diagnosed [...] orally every 6 hours prn , Taking Lisinopril 20 MG Tablet Take 1 tablet by mouth once daily , Taking Clotrimazole 10 MG Cindy 1 cindy while on immunosuppressive medicine Mouth/Throat 5 times a day , Taking medroxyPROGESTERone Acetate 2.5 MG Tablet TAKE 1 TABLET BY MOUTH ONCE DAILY FOR THE FIRST 7 DAYS OF EACH MONTH , Taking Estradiol 0.5 MG Tablet Take 1 tablet by mouth once daily , Taking Triamterene-HCTZ 37.5-25 MG Tablet take 1 tablet Orally Once a day , Taking Esomeprazole Magnesium 20 MG Capsule Delayed Release Take 1 capsule by mouth once daily , Taking Atorvastatin Calcium 20 MG Tablet 1 tablet Orally Once a day , Not-Taking Allopurinol 100 MG Tablet 1 tablet Orally Once a day , Medication List reviewed and reconciled with the patient * Allergies: P ercocet: pains in stomach and vomiting. Objective: * Vitals: W t: 252.2, Temp: 98.3, BP: 124/62, HR: 80, Nurse: simone, Ht: 65.25, BMI:41.64. * Examination: G eneral Examination: General Appearance: [...] ormal . E xtremities:?lipidema, trace leg edema, but legs do seem les edematous, less enlarged.. ? Assessment: * Assessment: 1. P olycystic ovary - E28.2 (Primary) 2 . H ormone replacement therapy - Z79.890 3 . P ure hypercholesterolemia - E78.00 4 . L ymphedema - I89.0 5 . L ipoedema - R60.9 6 . R heumatoid arthritis with positive rheumatoid factor, involving unspecified site - M05.9 Plan: * Treatment: * Procedure Codes: 1 036F TOBACCO NON-USER, G8783 BP SCR PRFRM RCMDD DEFIND SCR INTVL, 3074F SYST BP LT 130 MM HG, 3078F DIAST BP < 80 MM HG * Follow Up: 6 Months * Images: Billing Information: * Visit Code: 37551 Office Visit, Est Pt., Level 4. * Procedure Codes: 1036F TOBACCO NON-USER. G8783 BP SCR PRFRM RCMDD DEFIND SCR INTVL. 3074F SYST BP LT 130 MM HG. 3078F DIAST BP < 80 MM HG. * Electronic signature of Kingston Whitaker MD on 04/06/2025 at 11:28 AM EST Sign off status: Pending * Provider: Kingston Whitaker M.D. Date: 0 12/08/2024 Generated for Mark martel/Ellis/Bernieitting on: 06/06/2024 11:28 AM EST History and Physical Notes * Examination Category Sub-Category Detail Notes Category Not es General Examination HEENT: thin hair Heart: RSR Lungs: clear to auscultatio n Abdomen: obese, soft and nont chiara Extremities: lipidema, trace leg edema, but legs do seem les edematous, less enlarged. General Appearance: NAD Skin: normal, no rash Neurologic Exam: Intact, gait normal Neck: supple, no lymphaden opathy Oral cavity: no lesions, mucosa m oist and WNL, no erythema Peripheral pulses: normal Chest: normal shape and exp ansion
--- OUTSIDE RECORDS SUMMARY | 2025-03-30 09:15 | XMS_ITS | Encounter Summary ---
Author Organization [facility] yste Address [address] [place] [address] Care Team Providers Care Metal Spinner Name Role Phone Chip Whitaker MD Primary Care Provider [phone] Reason for Visit * Reason Comments Rheumatoid Arthritis 4 month follow up Encounter Details Date Type Department Care Team (Late st Contact Info) Description 03/30/2025 10:15 AM EDT Office Visit [facility] [address] [phone] Paul Sorensen MD [address] [place] [address] Rheumatoid arthritis involving multiple sites with positive rheumatoid factor (Primary Dx); Other fatigue; High risk medication use; Immunosuppression due to drug therapy Social History Tobacco Use Types Packs/Day Years Used Date Smoking Tobacco: Never Passive Smoke Exposure: Current Smokeless Tobacco: Never Tobacco Cessation:Counseling Given: Not Answered Alcohol Use Standard Drinks/Week Comments Yes 0 (1 standard drink = 0.6 oz pur e alcohol) rarely Comments Unknown Sex and Gender Information Value Date Recorded Sex Assigned at Female 03/27/2025 5:06 AM EDT Legal Sex Female 10:32 AM EST Gender Identity Not on file Sexual Orientation Choose not to disclose 2024 5:06 AM EDT documented as of this encounter Last Filed Vital Signs Vital Sign Reading Time Taken Comments Blood Pressure 112/68 03/30/2025 10:01 AM EDT Pulse 92 03/30/2025 10:01 AM EDT Temperature - - Respiratory Rate 18 03/30/2025 10:01 AM EDT Oxygen Saturation - - Inhaled Oxygen Concentration - - Weight 114 kg (251 lb) 03/30/2025 10:01 AM EDT Height 167.6 cm (5' 6 ) 03/30/2025 10:01 AM EDT Body Mass Index 40.51 03/30/2025 10:01 AM EDT documented in this encounter Progress Notes * Paul Sorensen MD - 03/30/2025 10:15 AM EDT Images from the original note were not included. Office Follow Up Date: 03/30/2025 Patient Name: Alma Saenz Date of : 1970 Referring Physician: No ref. provider found Chief Complaint: Chief Complaint Patient presents with Rheumatoid Arthritis 4 month follow up History of Present Illness: Alma Saenz is a 55 y.o. female with past medical history of HTN, HLD, GERD, gout who presents for follow up of RA with osteoarthritis. PMH: She had labs done with her orthopedic surgeon, Dr. Sanders with + RF, + CCP, + SAUL by IFA 1:160, and uric acid 6.4. She has had diffuse alopecia since around 2009. She is currently taking Humira 40mg SQ every 2 weeks, methotrexate and meloxicam. Humira was added 10/2022. No injection site reactions. No swollen joints today. Some aching in the joints with weather changes. No recent serious illness or infection. She has not been doing as well. She skipped her Humira and methotrexate for 1 week after recent flu shot. This seems to have triggered a bit of a flareup particularly in the right knee hands and elbows. She wants a round of steroids History of Present Illness Subjective Review of Systems: Review of Systems Constitutional: Positive for diaphoresis and fatigue. Negative for chills, fever and unexpected weight loss. HENT: Positive for sinus pressure. Negative for mouth sores and sore throat. Eyes: Negative for pain and redness. Respiratory: Positive for cough. Negative for shortness of breath. Cardiovascular: Negative for chest pain. Gastrointestinal: Positive for constipation. Negative for abdominal pain, blood in stool, diarrhea,nausea, vomiting and GERD. Endocrine: Negative for polydipsia and polyuria. Genitourinary: Negative for dysuria, genital sores and hematuria. Musculoskeletal: Positive for arthralgias, joint swelling and myalgias. Negative for back pain, neck pain and neck stiffness. Skin: Positive for bruise. Negative for rash. Neurological: Positive for memory problem. Negative for seizures, weakness and numbness. Hematological: Negative for adenopathy. Does not bruise/bleed easily. Psychiatric/Behavioral: Negative for depressed mood. The patient is not nervous/anxious. Past Medical History: Past Medical History: Diagnosis Date Arthritis Elevated lipids GERD (gastroesophageal reflux disease) Gout Hiatal hernia Hyperlipidemia Hypertension Lipedema Past Surgical History: Past Surgical History: Procedure Laterality Date BUNIONECTOMY 1999 and 2001 FOOT SURGERY Bilateral HIATAL HERNIA REPAIR TENDON RELEASE Left 1999 thanh tendon release foot VASCULAR SURGERY Bilateral Legs-varicose veins removed Family History: Family History Problem Relation Name Age of Onset Diabetes Mother Heart disease Mother Stroke Mother Thyroid disease Mother Heart disease Father Ulcers Father Lupus Sister Heart disease Sister Rheum arthritis Sister Fibromyalgia Sister Cancer Maternal Grandmother Social History: Social History Socioeconomic History Marital status: Single Tobacco Use Smoking status: Never Passive exposure: Current Smokeless tobacco: Never Vaping Use Vaping status: Never Used Substance and Sexual Activity Alcohol use: Yes Comment: rarely Drug use: No Sexual activity: Defer Medications: Current Outpatient Medications: acetaminophen (TYLENOL) 500 MG tablet, Take 1 tablet by mouth Every 4 (Four) Hours As Needed., Disp: , Rfl: Adalimumab (Humira, 2 Pen,) 40 MG/0.4ML Auto-injector Kit, Inject 40 mg under the skin into the appropriate area as directed Every 14 (Fourteen) Days., Disp: 2 each, Rfl: 5 atorvastatin (LIPITOR) 20 MG tablet, , Disp: , Rfl: 4 clotrimazole (MYCELEX) 10 MG cindy, DISSOLVE 1 TABLET BY MOUTH / THROAT FIVE TIMES DAILY FOR 10 DAYS WHILE ON IMMUNOSUPPRESSIVE MEDICINE, Disp: , Rfl: cyclobenzaprine (FLEXERIL) 5 MG tablet, Take 1 tablet by mouth 2 (Two) Times a Day As Needed for Muscle Spasms., Disp: 60 tablet, Rfl: 5 DULoxetine (CYMBALTA) 30 MG capsule, Take 1 capsule by mouth 2 (Two) Times a Day. Take 1 capsule byoral route every day for pain, Disp: 180 capsule, Rfl: 1 esomeprazole (nexIUM) 20 MG capsule, take 1 capsule by mouth once daily, Disp: , Rfl: estradiol (ESTRACE) 0.5 MG tablet, Take 1 tablet by mouth Daily., Disp: , Rfl: folic acid (FOLVITE) 1 MG tablet, Take 1 tablet by mouth Daily., Disp: 90 tablet, Rfl: 3 lisinopril (PRINIVIL,ZESTRIL) 20 MG tablet, Take 1 tablet by mouth Daily., Disp: , Rfl: medroxyPROGESTERone (PROVERA) 2.5 MG tablet, Take 1 tablet by mouth Daily., Disp: , Rfl: methotrexate 2.5 MG tablet, Take 10 tablets by mouth 1 (One) Time Per Week., Disp: 120 tablet, Rfl:0 Multi Vitamin tablet tablet, Take 1 tablet by mouth Daily., Disp: , Rfl: triamterene-hydrochlorothiazide (MAXZIDE-25) 37.5-25 MG per tablet, Take 1 tablet by mouth Daily., Disp: , Rfl: predniSONE (DELTASONE) 5 MG tablet, Take 4 tablets by mouth Every Morning for 3 days, THEN 3 tablets Every Morning for 3 days, THEN 2 tablets Every Morning for 3 days, THEN 1 tablet Every Morning for3 days. Take 4 tablets every morning for 3 days, 3 tablets every morning for 3 days, 2 tablets every morning for 3 day, 1 tablet every morning for 3 days., Disp: 30 tablet, Rfl: 0 Allergies: Allergies Allergen Reactions Oxycodone Hcl Nausea And Vomiting Percocet [Oxycodone-Acetaminophen] Nausea And Vomiting Objective Vital Signs: Vitals: 03/30/25 1001 BP: 112/68 BP Location: Left arm Patient Position: Sitting Cuff Size: Adult Pulse: 92 Resp: 18 Weight: 114 kg (251 lb) Height: 167.6 cm (66 ) Body mass index is 40.51 kg/m??. Physical Exam: Physical Exam MUSCULOSKELETAL: No peripheral synovitis Tender right elbow with range of motion Tender right knee with range of motion Complete joint exam was performed including the MCPs, PIPs, DIPs of the hands, wrists, elbows, shoulders, hips, knees and ankles. No soft tissue swelling or tenderness is present except as above. General: The patient is well-developed and well nourished. Cooperative, alert and oriented. Affect is normal. Hydration appears normal. HEENT: Normocephalic and atraumatic. Lids and conjunctiva are normal. Pupils are equal and sclera are clear. Oropharynx is clear NECK neck is supple without adenopathy, masses or thyromegaly. CARDIOVASCULAR: Regular rate and rhythm. No murmurs, rubs or gallops LUNGS: Effort is normal. Lungs are clear bilateral ABDOMEN: Not examined EXTREMITIES: Peripheral pulses are intact. No clubbing. SKIN: No rashes. No subcutaneous nodules. No digital ulcers. No sclerodactyly. NEUROLOGIC: Gait is normal. Strength testing is normal. No focal neurologic deficits Results Review: Labs: Lab Results Component Value Date GLUCOSE 100 (H) 10/20/2024 BUN 17 10/20/2024 CREATININE 0.91 10/20/2024 EGFR 74.2 10/20/2024 BCR 18.7 10/20/2024 K 4.1 10/20/2024 CO2 28.0 10/20/2024 CALCIUM 9.7 10/20/2024 ALBUMIN 4.3 10/20/2024 BILITOT 0.4 10/20/2024 AST 24 10/20/2024 ALT 18 10/20/2024 Lab Results Component Value Date WBC 8.53 10/20/2024 HGB 13.6 10/20/2024 HCT 39.1 10/20/2024 MCV 97.0 10/20/2024 PLT 287 10/20/2024 Lab Results Component Value Date SEDRATE 37 (H) 10/20/2024 Lab Results Component Value Date CRP 0.70 (H) 10/20/2024 Lab Results Component Value Date QUANTIFERO Incubation performed. 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 Pierce Orthopedist Dr. Sanders + RF 62.7, + CCP 138, + SAUL by IFA 1:160, elevated ESR and CRP Current: MTX 25 mg weekly, Humira qowk 2022 (Dr Miller), duloxetine Avoids NSAIDs with renal insufficiency Moderate disease activity from a rheumatoid standpoint. No swollen joints. Multiple tender joints. She recently skipped methotrexate and Humira for 1 week after her flu shot. She thinks this may have triggered a flare. X-ray right knee today Prednisone taper starting at 20 mg over the next 12 days Continue Humira injection every other week Continue methotrexate 25 mg PO once weekly and split dose on the days she takes it Continue folic acid daily - duloxetine 30 mg BID for OA pain Avoiding further meloxicam/NSAIDs due to renal insufficiency Labs ordered for monitoring as below today and every 3 months while on methotrexate Return to clinic 4 months with her friend Latoya Puckett who is also a patient (they ride together) High risk medication use MTX, Humira. Last QTB negative 03/17/24, update 03/30/2025 Last hepatitis panel negative 10/2022 Well-tolerated and effective Labs with CBC, CMP, ESR, CRP every 3 months on current medications. We have discussed the possible side effects of methotrexate including, but not limited to: oral ulcers, nausea, diarrhea, rash, increased infection risk, bone marrow suppression, hepatitis, pulmonarytoxicity. We discussed the need to avoid alcohol and to have regulatory lab monitoring done while taking methotrexate. We discussed that live virus vaccines are contraindicated while taking methotrexa te. We have discussed possible adverse effects of TNF Inhibitor/ Biologic type medications including serious infections (Reactivation of latent TB, Invasive fungal infections, Bacterial, viral, and otherinfections caused by opportunistic pathogens, including Legionella and Listeria). Other rare side effects seen with TNF blockers include but not limited to worsening of congestive heart failure, the risk for malignancies including Lymphoma, injection site reaction, drug induced lupus, and the development of demyelinating disease, etc. were explained. Risk and benefits of SNRIs discussed including but not limited to worsening depression, suicidal ideation, nausea, constipation Immunosuppression due to drug therapy Humira and MTX well tolerated. 1. Hold if the patient develops infection. 2. Avoid live vaccines while on this medication. 3. No recent serious infections 4. No injection site reactions. 5. Also hold this medication perioperatively if the patient is going to have a surgical procedure. -Gout Inactive Goal uric acid in gout is below 6. Recommend Mediterranean diet for weight loss. Recommend avoidance of known gout triggers such as shellfish, alcohol, soda, red meat -Osteoarthritis Avoiding NSAIDs with history of renal sufficiency Weight loss would help. Recommend Mediterranean diet Assessment & Plan 1. Rheumatoid arthritis involving multiple sites with positive rheumatoid factor 2. Other fatigue 3. High risk medication use 4. Immunosuppression due to drug therapy Orders Placed This Encounter Procedures XR Knee 1 or 2 View Right CBC Auto Differential Comprehensive Metabolic Panel C-reactive Protein Sedimentation Rate Comprehensive Metabolic Panel C-reactive Protein Sedimentation Rate Rheumatoid Factor Cyclic Citrul Peptide Antibody, IgG / IgA Hepatitis Panel, Acute QuantiFERON-TB Gold Plus (Li-Hep) Comprehensive Metabolic Panel CBC Auto Differential C-reactive Protein Sedimentation Rate CBC & Differential New Medications Ordered This Visit Medications Adalimumab (Humira, 2 Pen,) 40 MG/0.4ML Auto-injector Kit Sig: Inject 40 mg under the skin into the appropriate area as directed Every 14 (Fourteen) Days. Dispense: 2 each Refill: 5 methotrexate 2.5 MG tablet Sig: Take 10 tablets by mouth 1 (One) Time Per Week. Dispense: 120 tablet Refill: 0 DULoxetine (CYMBALTA) 30 MG capsule Sig: Take 1 capsule by mouth 2 (Two) Times a Day. Take 1 capsule by oral route every day for pain Dispense: 180 capsule Refill: 1 cyclobenzaprine (FLEXERIL) 5 MG tablet Sig: Take 1 tablet by mouth 2 (Two) Times a Day As Needed for Muscle Spasms. Dispense: 60 tablet Refill: 5 predniSONE (DELTASONE) 5 MG tablet Sig: Take 4 tablets by mouth Every Morning for 3 days, THEN 3 tablets Every Morning for 3 days, THEN 2 tablets Every Morning for 3 days, THEN 1 tablet Every Morning for 3 days. Take 4 tablets every morning for 3 days, 3 tablets every morning for 3 days, 2 tablets every morning for 3 day, 1 tablet every morning for 3 days. Dispense: 30 tablet Refill: 0 Follow Up: Return in about 4 months (around 07/28/2025). Discussed plan of care in detail with the patient today. Patient verbalized understanding and agrees. I confirm accuracy of unchanged data/findings which have been carried forward from previous visit. I have updated appropriately those that have changed. Paul Sorensen MD [facility] [place] documented in this encounter Plan of Treatment Upcoming Encounters Date Type Department Care Team (Late st Contact Info) Description 07/27/2025 2:15 PM EST Office Visit [facility] [address] [phone] Wander Newell APRN [address] [address] Scheduled Orders Name Type Priority Associated Diagnoses Orde r Schedule CBC Auto Differential Lab Routine Rheumatoid arthritis involving multiple sites with positive rheumatoid factor High risk medication use Immunosuppression due to drug therapy Every 12 Weeks for 3 Occurrences starting 03/30/2025 until 03/30/2026 Comprehensive Metabolic Panel Lab Routine Rheumatoid arthritis involving multiple sites with positive rheumatoid factor High risk medication use Immunosuppression due to drug therapy Every 12 Weeks for 3 Occurrences starting 03/30/2025 until 03/30/2026 C-reactive Protein Lab Routine Rheumatoid arthritis involving multiple sites with positive rheumatoid factor High risk medication use Immunosuppression due to drug therapy Every 12 Weeks for 3 Occurrences starting 03/30/2025 until 03/30/2026 Sedimentation Rate Lab Routine Rheumatoid arthritis involving multiple sites with positive rheumatoid factor High risk medication use Immunosuppression due to drug therapy Every 12 Weeks for 3 Occurrences starting 03/30/2025 until 03/30/2026 XR Knee 1 or 2 View Right Imaging Routine Rheumatoid arthritis involving multiple sites with positive rheumatoid factor Ordered: 03/30/2025 Comprehensive Metabolic Panel Lab Routine Rheumatoid arthritis involving multiple sites with positive rheumatoid factor High risk medication use Immunosuppression due to drug therapy Every 12 Weeks for 3 Occurrences starting 03/30/2025 until 03/30/2026 CBC Auto Differential Lab Routine Rheumatoid arthritis involving multiple sites with positive rheumatoid factor High risk medication use Immunosuppression due to drug therapy Every 12 Weeks for 3 Occurrences starting 03/30/2025 until 03/30/2026 C-reactive Protein Lab Routine Rheumatoid arthritis involving multiple sites with positive rheumatoid factor High risk medication use Immunosuppression due to drug therapy Every 12 Weeks for 3 Occurrences starting 03/30/2025 until 03/30/2026 Sedimentation Rate Lab Routine Rheumatoid arthritis involving multiple sites with positive rheumatoid factor High risk medication use Immunosuppression due to drug therapy Every 12 Weeks for 3 Occurrences starting 03/30/2025 until 03/30/2026 documented as of this encounter Procedures Procedure Name Priority Date/Time Associated Diagnosis Comments HEPATITIS C VIRUS INTERPRETATION Routine 03/30/2025 11:15 AM EDT QUANTIFERON-TB GOLD PLUS Routine 03/30/2025 11:15 AM EDT QUANTIFERON-TB GOLD PLUS (LI-HEP) Routine 03/30/2025 11:15 AM EDT Rheumatoid arthritis involving multiple sites with positive rheumatoid factor High risk medication use Immunosuppression due to drug therapy RHEUMATOID FACTOR, QUANT Routine 03/30/2025 11:15 AM EDT Rheumatoid arthritis involving multiple sites with positive rheumatoid factor High risk medication use Immunosuppression due to drug therapy CYCLIC CITRUL PEPTIDE ANTIBODY, IGG/IGA Routine 03/30/2025 11:15 AM EDT Rheumatoid arthritis involving multiple sites with positive rheumatoid factor High risk medication use Immunosuppression due to drug therapy HEPATITIS PANEL, ACUTE Routine 11:15 AM EDT Other fatigue Rheumatoid arthritis involving multiple sites with positive rheumatoid factor High risk medication use Immunosuppression due to drug therapy SEDIMENTATION RATE Routine 03/30/2025 11 :15 AM EDT Rheumatoid arthritis involving multiple sites with positive rheumatoid factor High risk medication use Immunosuppression due to drug therapy CBC AND DIFFERENTIAL Routine 03/30/2025 11:15 AM EDT Rheumatoid arthritis involving multiple sites with positive rheumatoid factor High risk medication use Immunosuppression due to drug therapy C-REACTIVE PROTEIN Routine 03/30/2025 11 :15 AM EDT Rheumatoid arthritis involving multiple sites with positive rheumatoid factor High risk medication use Immunosuppression due to drug therapy COMPREHENSIVE METABOLIC PANEL Routine 03/30/2025 11:15 AM EDT Rheumatoid arthritis involving multiple sites with positive rheumatoid factor High risk medication use Immunosuppression due to drug therapy documented in this encounter Results * QuantiFERON-TB Gold Plus (03/30/2025 11:15 AM EDT) QuantiFERON Criteria Comment [facility] Comment: QuantiFERON-TB Gold Plus is a qualitative indirect test for M tuberculosis infection (including disease) and is intended for use in conjunction with risk assessment, radiography, and other medical and diagnostic evaluations. The QuantiFERON-TB Gold Plus result is determined by subtracting the Nil value from either TB antigen (Ag) value. The Mitogen tube serves as a control for the test. QUANTIFERON TB1 AG VALUE 0.02 IU/mL [facility] QUANTIFERON TB2 AG VALUE 0.02 IU/mL [facility] QuantiFERON Nil Value 0.01 IU/mL [facility] QuantiFERON Mitogen Value >10.00 IU/mL [facility] 03/30/2025 11:1 5 AM EDT 03/30/2025 Narrative [facility] (AMBULATORY) - 04/02/2025 12:07 PM EST Performed at: [address] [id number] Doweler: Chente Shipman PhD, Phone: [phone] Patient Fasting: N Paul Sorensen MD LAB BLOOD ORDERABLES Final Result [facility] (AMBULATORY) [address] [place] [address], [facility] [address] [place] [address], * Hepatitis C Virus Interpretation (03/30/2025 11:15 AM EDT) Interpretation Comment [facility] Comment: Not infected with HCV unless early or acute infection is suspected (which may be delayed in an immunocompromised individual), or other evidence exists to indicate HCV infection. 03/30/2025 11:1 5 AM EDT 03/30/2025 Narrative [facility] (AMB[facility]ATORY) - 04/02/2025 12:07 PM EST Performed at: [address] [id number] Doweler: Chente Shipman PhD, Phone: [phone] Patient Fasting: N us Paul Sorensen MD LAB BLOOD ORDERABLES Final Result Performing Organization Address City/[facility] Co de Phone Number [facility] (AMBULATORY) [address] [place] [address], [facility] [address] [place] [address], * QuantiFERON-TB Gold Plus (Li-Hep) (03/30/2025 11:15 AM EDT) Pathologist [facility] QuantiFERON Incubation Incubation performed. [facility] QUANTIFERON-TB GOLD PLUS Negative Negative [facility] Comment: No response to M tuberculosis antigens detected. Infection with M tuberculosis is unlikely, but high risk individuals should be considered for additional testing (ATS/IDSA/CDC Clinical Practice Guidelines, 2017). The reference range is an Antigen minus Nil result of <0.35 IU/mL. Chemiluminescence immunoassay methodology Blood 03/30/2025 11:1 5 AM EDT 03/30/2025 Narrative [facility] (AMBULATORY) - 04/02/2025 12:07 PM EST Performed at: 02 - [facility] [address] [place] [id number] Doweler: Chente Shipman PhD, Phone: [phone] Patient Fasting: N us Paul Sorensen MD LAB BLOOD ORDERABLES Final Result Performing Organization Address City/[facility] Co de Phone Number [facility] (AMBULATORY) [address] [place] [address], [facility] [address] [place] [address], [place] [phone] * Hepatitis Panel, Acute (03/30/2025 11:15 AM EDT) [facility] Hep A IgM Negative Negative [facility] Comment: A negative anti-HAV IgM result suggests no recent or current HAV infection. Hepatitis B Surface Ag Negative Negative [facility] Hep B Core IgM Negative Negative [facility] Hepatitis C Ab Non Reactive Non Reactive [facility] Blood 03/30/2025 11:1 5 AM EDT 03/30/2025 Narrative [facility] (AMBULATORY) - 04/02/2025 12:07 PM EST Performed at: 02 - [address] [id number] Doweler: Chente Shipman PhD, Phone: [phone] Patient Fasting: N us Paul Sorensen MD LAB BLOOD ORDERABLES Final Result Performing Organization Address [facility] Co de Phone Number [facility] (AMBULATORY) [address] [place] [address], [facility] [address] [place] [address], [place] [phone] * (ABNORMAL) Cyclic Citrul Peptide Antibody, IgG / IgA (03/30/2025 11:15 AM EDT) Pathologist [facility] CCP Antibodies IgG/IgA 78(H) 0 - 19 units [facility] Comment: Negative <20 Weak positive 20 - 39 Moderate positive 40 - 59 Strong positive >59 Blood 03/30/2025 11:1 5 AM EDT 03/30/2025 [facility] (AMBULATORY) - 04/02/2025 12:07 PM EST Performed at: 02 - [address] [id number] Doweler: Chente Shipman PhD, Phone: [phone] Patient Fasting: N us Paul Sorensen MD LAB BLOOD ORDERABLES Final Result Performing Organization Address [facility] Co de Phone Number [facility] (AMBULATORY) [address] [place] [address], [place] [phone] [facility] [address] [place] [address], [place] [phone] * (ABNORMAL) Rheumatoid Factor (03/30/2025 11:15 AM EDT) Pathologist [facility] RA Latex Turbid 26.4(H) <14.0 IU/mL [facility] Blood 03/30/2025 11:1 5 AM EDT 03/30/2025 Narrative [facility] ([facility]) - 04/02/2025 12:07 PM EST Performed at: 02 - [facility] [address] [place], [place] [id number] Doweler: Chente Shipman PhD, Phone: [phone] Patient Fasting: N us Paul Sorensen MD LAB BLOOD ORDERABLES Final Result Performing Organization Address [facility] Co de Phone Number [facility] ([facility]) [address] [place] [address], [place] [phone] [facility] [address] [place] [address], [place] [phone] * (ABNORMAL) Sedimentation Rate (03/30/2025 11:15 AM EDT) Sed Rate 42(H) 0 - 30 mm/hr [facility] Blood 03/30/2025 11:1 5 AM EDT 03/30/2025 Narrative [facility] ([facility]) - 04/02/2025 12:07 PM EST Performed at: [address] [place] [id number] Doweler: Davin Damon MD, Phone: [phone] Patient Fasting: N us Paul Sorensen MD LAB BLOOD ORDERABLES Final Result Performing Organization Address [facility] Co de Phone Number [facility] (AMBULATORY) [address] [place] [address], [place] [phone] [facility] [address] [place] [address], [place] [phone] * (ABNORMAL) C-reactive Protein (03/30/2025 11:15 AM EDT) C-Reactive Protein 8.10(H) 0.00 - 0.50 mg/dL [facility] Blood 03/30/2025 11:1 5 AM EDT 03/30/2025 Narrative [facility] ([facility]) - 04/02/2025 12:07 PM EST Performed at: [address] [address] [place], [place] [id number] Doweler: Davin Damon MD, Phone: [phone] Patient Fasting: N Paul Sorensen MD LAB BLOOD ORDERABLES Final Result [facility] ([facility]) [address] [place] [address], [facility] [address] [place] [address], * Comprehensive Metabolic Panel (03/30/2025 11:15 AM EDT) Pathologist [facility] Glucose 88 65 - 99 mg/dL [facility] BUN 19.0 6.0 - 20.0 mg/dL [facility] Creatinine 0.87 0.57 - 1.00 mg/dL [facility] EGFR Result 77.8 >60.0 mL/min/1.7 3 [facility] Comment: GFR Categories in Chronic Kidney Disease (CKD) GFR Category GFR (mL/min/1.73) Interpretation G1 90 or greater Normal or high (1) G2 60-89 Mild decrease (1) G3a 45-59 Mild to moderate decrease G3b 30-44 Moderate to severe decrease G4 15-29 Severe decrease G5 14 or less Kidney failure (1)In the absence of evidence of kidney disease, neither GFR category G1 or G2 fulfill the criteria for CKD. eGFR calculation 2020 CKD-EPI creatinine equation, which does not include race as a factor BUN/Creatinine Ratio 21.8 7.0 - 25.0 [facility] Sodium 140 136 - 145 mmol/L [facility] Potassium 4.1 3.5 - 5.2 mmol/L [facility] Chloride 100 98 - 107 mmol/L [facility] Total CO2 26.0 22.0 - 29.0 mmol/L [facility] Calcium 9.1 8.6 - 10.5 mg/dL [facility] Total Protein 7.1 6.0 - 8.5 g/dL [facility] Albumin 3.8 3.5 - 5.2 g/dL [facility] Globulin 3.3 gm/dL [facility] A/G Ratio 1.2 g/dL [facility] Total Bilirubin 0.4 0.0 - 1.2 mg/dL [facility] Alkaline Phosphatase 90 39 - 117 U/L [facility] AST (SGOT) 15 1 - 32 U/L [facility] ALT (SGPT) 12 1 - 33 U/L [facility] Blood 03/30/2025 11:1 5 AM EDT 03/30/2025 Narrative [facility] (AMBULATORY) - 04/02/2025 12:07 PM EST Performed at: [address] [id number] Doweler: Davin Damon MD, Phone: [phone] Patient Fasting: N Paul Sorensen MD LAB BLOOD ORDERABLES Final Result [facility] (AMBULATORY) [address] [place] [address], [facility] [address] [place] [address], * (ABNORMAL) CBC & Differential (03/30/2025 11:15 AM EDT) WBC 11.32(H) 3.40 - 10.80 10*3/mm3 [facility] RBC 3.85 3.77 - 5.28 10*6/mm3 [facility] Hemoglobin 12.3 12.0 - 15.9 g/dL [facility] Hematocrit 38.7 34.0 - 46.6 % [facility] MCV 100.5(H) 79.0 - 97.0 fL [facility] MCH 31.9 26.6 - 33.0 pg [facility] MCHC 31.8 31.5 - 35.7 g/dL [facility] RDW 12.4 12.3 - 15.4 % [facility] Platelets 327 140 - 450 10*3/mm3 [facility] Neutrophil Rel % 59.5 42.7 - 76.0 % [facility] Lymphocyte Rel % 30.8 19.6 - 45.3 % [facility] Monocyte Rel % 8.0 5.0 - 12.0 % [facility] Eosinophil Rel % 0.8 0.3 - 6.2 % [facility] Basophil Rel % 0.6 0.0 - 1.5 % [facility] Neutrophils Absolute 6.73 1.70 - 7.00 10*3/mm3 [facility] Lymphocytes Absolute 3.49(H) 0.70 - 3.10 10*3/mm3 [facility] Monocytes Absolute 0.91(H) 0.10 - 0.90 10*3/mm3 [facility] Eosinophils Absolute 0.09 0.00 - 0.40 10*3/mm3 [facility] Basophils Absolute 0.07 0.00 - 0.20 10*3/mm3 [facility] Immature Granulocyte Rel % 0.3 0.0 - 0.5 % [facility] Immature Grans Absolute 0.03 0.00 - 0.05 10*3/mm3 [facility] nRBC 0.0 0.0 - 0.2 /100 WBC [facility] Blood 03/30/2025 11:1 5 AM EDT 03/30/2025 Narrative [facility] ([facility]) - 04/02/2025 12:07 PM EST Performed at: [address] [id number] Doweler: Davin Damon MD, Phone: [phone] Patient Fasting: N Paul Sorensen MD LAB BLOOD ORDERABLES Final Result Performing Organization Address City/State/[facility] Co de Phone Number [facility] (AMBULATORY) [address] [place] [address], [facility] [address] [place] [address], documented in this encounter Visit Diagnoses Diagnosis Rheumatoid arthritis involving multiple sites with positive rheumatoid factor- Primary Other fatigue High risk medication use Immunosuppression due to drug therapy documented in this encounter Care Teams Metal Spinner Relationship Specialty Start Date End Date Chip Whitaker MD [address] [place] [address] PCP - General Family Medicine 04/19/17 documented as of this encounter
--- OUTSIDE RECORDS SUMMARY | 2025-04-06 11:28 | XMS_ITS | Clinical Summary ---
[facility] Organization [facility] Address [address] [place] [address] Care Team Providers Care Pilot Can Router Name Role Phone Chip Whitaker MD Primary Care Provider [phone] Allergies Active Allergy Reactions Criticality Noted Date Comments Oxycodone Hcl Nausea And Vomiting Low 11/24/2023 Oxycodone-Acetaminophen Nausea And Vomiting Low Medications medroxyPROGES TERone (PROVERA) 2.5 MG tablet Take 1 tablet by mouth Daily. Active atorvastatin (LIPITOR) 20 MG tablet 4 03/30/20 17 Active lisinopril (PRINIVIL,ZES TRIL) 20 MG tablet Take 1 tablet by mouth Daily. Active clotrimazole (MYCELEX) 10 MG cindy DISSOLVE 1 TABLET BY MOUTH / THROAT FIVE TIMES DAILY FOR 10 DAYS WHILE ON IMMUNOSUPPRESSIVE MEDICINE 02/16/20 24 Active esomeprazole (nexIUM) 20 MG capsule take 1 capsule by mouth once daily 03/05/20 24 Active Multi Vitamin tablet tablet Take 1 tablet by mouth Daily. Active acetaminophen (TYLENOL) 500 MG tablet Take 1 tablet by mouth Every 4 (Four) Hours As Needed. Active folic acid (FOLVITE) 1 MG tabletIndicat ions:Rheumato id arthritis involving multiple sites with positive rheumatoid factor,High risk medication use Take 1 tablet by mouth Daily. 90 tablet 3 10/21/19 25 Active triamterene-h ydrochlorothi azide (MAXZIDE-25) 37.5-25 MG per tablet Take 1 tablet by mouth Daily. Active estradiol (ESTRACE) 0.5 MG tablet Take 1 tablet by mouth Daily. Active Adalimumab (Humira, 2 Pen,) 40 MG/0.4ML Auto-injector Kit Inject 40 mg under the skin into the appropriate area as directed Every 14 (Fourteen) Days. 2 each 5 03/30/20 25 Active methotrexate 2.5 MG tabletIndicat ions:Rheumato id arthritis involving multiple sites with positive rheumatoid factor,High risk medication use Take 10 tablets by mouth 1 (One) Time Per Week. 120 tablet 03/30/20 25 Active DULoxetine (CYMBALTA) 30 MG capsuleIndica tions:Rheumat oid arthritis involving multiple sites with positive rheumatoid factor,High risk medication use Take 1 capsule by mouth 2 (Two) Times a Day. Take 1 capsule by oral route every day for pain 180 capsule 1 03/30/20 25 Active cyclobenzapri ne (FLEXERIL) 5 MG tabletIndicat ions:Rheumato id arthritis involving multiple sites with positive rheumatoid factor Take 1 tablet by mouth 2 (Two) Times a Day As Needed for Muscle Spasms. 60 tablet 5 03/30/20 25 Active predniSONE (DELTASONE) 5 MG tablet Take 4 tablets by mouth Every Morning for 3 days, THEN 3 tablets Every Morning for 3 days, THEN 2 tablets Every Morning for 3 days, THEN 1 tablet Every Morning for 3 days. Take 4 tablets every morning for 3 days, 3 tablets every morning for 3 days, 2 tablets every morning for 3 day, 1 tablet every morning for 3 days. 30 tablet 04/01/20 25 Active estradiol (ESTRACE) 1 MG tablet Take 1 tablet by mouth Daily. 025 Discontin ued(Dose adjustmen t) triamterene-h ydrochlorothi azide (DYAZIDE) 37.5-25 MG per capsule Take 1 capsule by mouth Daily. 025 Discontin ued(Dose adjustmen t) cyclobenzapri ne (FLEXERIL) 5 MG tabletIndicat ions:Rheumato id arthritis involving multiple sites with positive rheumatoid factor Take 1 tablet by mouth 2 (Two) Times a Day As Needed for Muscle Spasms. 60 tablet 5 11/26/19 24 025 Discontin ued(Reord er) Adalimumab (Humira, 2 Pen,) 40 MG/0.4ML Auto-injector Kit Inject 40 mg under the skin into the appropriate area as directed Every 14 (Fourteen) Days. 2 each 5 10/21/19 25 Discontin ued(Reord er) DULoxetine (CYMBALTA) 30 MG capsuleIndica tions:Rheumat oid arthritis involving multiple sites with positive rheumatoid factor,High risk medication use Take 1 capsule by mouth 2 (Two) Times a Day. Take 1 capsule by oral route every day for pain 180 capsule 1 10/21/19 25 Discontin ued(Reord er) methotrexate 2.5 MG tabletIndicat ions:Rheumato id arthritis involving multiple sites with positive rheumatoid factor,High risk medication use Take 10 tablets by mouth 1 (One) Time Per Week. 120 tablet 10/21/19 Discontin ued(Reord er) predniSONE (DELTASONE) 5 MG tablet Take 4 tablets by mouth Every Morning for 3 days, THEN 3 tablets Every Morning for 3 days, THEN 2 tablets Every Morning for 3 days, THEN 1 tablet Every Morning for 3 days. Take 4 tablets every morning for 3 days, 3 tablets every morning for 3 days, 2 tablets every morning for 3 day, 1 tablet every morning for 3 days. 30 tablet 03/30/20 Discontin ued(Reord er) Active Problems Problem Noted Date Diagnosed Date Hyperuricemia 06/16/2024 Other rheumatoid arthritis w ith rheumatoid factor of multiple sites 11/24/2023 Encounters Date Type Department Care Team Description 04/03/2025 Results Follow-Up [facility] [address] [place] [phone] Paul Sorensen MD 03/30/2025 10:15 AM EDT Office Visit [facility] [address] [place] [phone] Paul Sorensen MD Rheumatoid arthritis involving multiple sites with positive rheumatoid factor (Primary Dx); Other fatigue; High risk medication use; Immunosuppression due to drug therapy 03/30/2025 Travel 01/30/2025 Telephone [facility] [address] [place] [phone] Paul Sorensen MD 01/19/2025 Telephone [facility] [address] [phone] Paul Sorensen MD [place] NEEDED from Last 3 Months Immunizations Immunization Administration Dates Next Due Hepatitis A 05/11/2018 Td (TDVAX) 07/30/1996 Tdap 09/07/2020 Family History Medical History Relation Name Comments Heart disease Father Ulcers Father Cancer Maternal Grandmother Diabetes Mother Heart disease Mother Stroke Mother Thyroid disease Mother Fibromyalgia Sister Heart disease Sister Lupus Sister Rheum arthritis Sister Relation Name Status Comments Father Maternal Grandmother Mother Sister Social History Tobacco Use Types Packs/Day Years [...] not to disclose 2024 5:06 AM EDT Last Filed Vital Signs Vital Sign Reading Time Taken Comments Blood Pressure 112/68 03/30/2025 10:01 AM EDT Pulse 92 03/30/2025 10:01 AM EDT Temperature 36.2 C (97.1 F) 10/20/2024 11:24 AM EDT Respiratory Rate 18 03/30/2025 10:01 AM EDT Oxygen Saturation - - Inhaled Oxygen Concentration - - Weight 114 kg (251 lb) 03/30/2025 10:01 AM EDT Height 167.6 cm (5' 6 ) 03/30/2025 10:01 AM EDT Body Mass Index 40.51 03/30/2025 10:01 AM EDT Plan of Treatment Upcoming Encounters Date Type Department Care Team (Late st Contact Info) Description 07/27/2025 2:15 PM EST Office Visit [facility] [address] [phone] Wander Newell, CONTRACT POST OFFICE CLERK [address] [id number] Health Maintenance Due Date Last Done Comments Annual Gynecologic Pelvic an d Breast Exam 1968 Pneumococcal Vaccine 50+ (1 of 2 - PCV) 1987 ZOSTER VACCINE (1 of 2) 1987 PAP SMEAR 1989 COLOGUARD 2013 COLON CANCER SCREENING 5 YEA R SIGMOIDOSCOPY 2013 COLONOSCOPY [address] CANCER SCREENING 2013 CT COLONOGRAPHY 2013 FECAL OCCULT BLOOD TEST 2013 FIT Testing (1 year) 2013 ANNUAL PHYSICAL 04/26/2017 MAMMOGRAM 02/19/2023 02/19/2021, 01/30, 11/02/2018 INFLUENZA VACCINE 12/29/2024 TDAP/TD VACCINES (3 - Td or Tdap) 09/07/2030 021, 07/30/1996 HEPATITIS C SCREENING Completed 03/30/2025 Procedures Procedure Name Priority Date/Time Associated Diagnosis Comments HEPATITIS C VIRUS INTERPRETATION Routine 03/30/2025 11:15 AM EDT CBC AND DIFFERENTIAL Routine 03/30/2025 11:15 AM EDT Rheumatoid arthritis involving multiple sites with positive rheumatoid factor High risk medication use Immunosuppression due to drug therapy QUANTIFERON-TB GOLD PLUS Routine 03/30/2025 11:15 AM [...] medication use Immunosuppression due to drug therapy from Last 3 Months Results * Hepatitis C Virus Interpretation (03/30/2025 11:15 AM EDT) Interpretation Comment [facility] Comment: Not infected with HCV unless early or acute infection is suspected (which may be delayed in an immunocompromised individual), or other evidence exists to indicate HCV infection. 03/30/2025 11:1 5 AM EDT 03/30/2025 Narrative [facility] (AMBULATORY) - 04/02/2025 12:07 PM EST Performed at: 02 - [address] [id number] Producer Director: Chente Shipman PhD, Phone: [phone] Patient Fasting: N Paul Sorensen MD LAB BLOOD ORDERABLES Final Result [facility] ([facility]ATORY) [address] [place] [address], [facility] [address] [place] [address], * QuantiFERON-TB Gold Plus (03/30/2025 11:15 AM [...] - 04/02/2025 12:07 PM EST Performed at: [address] [place] [id number] Producer Director: Chente Shipman PhD, Phone: [phone] Patient Fasting: N Paul Sorensen MD LAB BLOOD ORDERABLES Final Result [facility] [address] [place] [address], [facility] [address] [place] [address], * QuantiFERON-TB Gold Plus (Li-Hep) (03/30/2025 11:15 AM EDT) [facility] QuantiFERON Incubation Incubation performed. [facility] QUANTIFERON-TB [...] Blood 03/30/2025 11:1 5 AM EDT 03/30/2025 [facility] ([facility]) - 04/02/2025 12:07 PM EST Performed at: [address] [id number] Producer Director: Chente Shipman PhD, Phone: [phone] Patient Fasting: N us Paul Sorensen MD LAB BLOOD ORDERABLES Final Result Performing Organization Address City/[facility]/ZIP Co de Phone Number [facility] (AMBULATORY) [address] [place] [address], [facility] [address] [place] [address], [place] [phone] * (ABNORMAL) Rheumatoid Factor (03/30/2025 11:15 AM EDT) Pathologist [facility] RA Latex Turbid 26.4(H) <14.0 IU/mL [facility] Blood 03/30/2025 11:1 5 AM EDT 03/30/2025 Narrative [facility] (AMBULATORY) - 04/02/2025 12:07 PM EST Performed at: [address] [id number] Producer Director: Chente Shipman PhD, Phone: [phone] Patient Fasting: N us Paul Sorensen MD LAB BLOOD ORDERABLES Final Result Performing Organization Address City/[facility]/ZIP Co de Phone Number [facility] (AMBULATORY) [address] [place] [address], [facility] [address] [place] [address], * (ABNORMAL) Cyclic Citrul Peptide Antibody, IgG / IgA (03/30/2025 11:15 AM EDT) Pathologist [facility] CCP Antibodies IgG/IgA 78(H) 0 - 19 units [facility] Comment: Negative <20 Weak positive 20 - 39 Moderate positive 40 - 59 Strong positive >59 Blood 03/30/2025 11:1 5 AM EDT 03/30/2025 Narrative [facility] ([facility]) - 04/02/2025 12:07 PM EST Performed at: [address] [id number] Producer Director: Chente Shipman PhD, Phone: [phone] Patient Fasting: N us Paul Sorensen MD LAB BLOOD ORDERABLES Final Result Performing Organization Address City/[facility]/ZIP Co de Phone Number [facility] ([facility]ORY) [address] [place] [address], [facility] [address] [place] [address], * Hepatitis Panel, Acute (03/30/2025 11:15 AM EDT) Pathologist [facility] Hep A IgM Negative Negative [facility] Comment: A negative anti-HAV IgM result suggests no recent or current HAV infection. Hepatitis B Surface Ag Negative Negative [facility] Hep B Core IgM Negative Negative [facility] Hepatitis C Ab Non Reactive Non Reactive [facility] Blood 03/30/2025 11:1 5 AM EDT 03/30/2025 Narrative [facility] (AM[facility]ORY) - 04/02/2025 12:07 PM EST Performed at: 02 [facility] [address] [place] [id number] Producer Director: Chente Shipman PhD, Phone: [phone] Patient Fasting: N us Paul Sorensen MD LAB BLOOD ORDERABLES Final Result Performing Organization Address [facility] Co de Phone Number [facility] [address] [place] [address], [place] [phone] [facility] [address] [place] [address], [place] [phone] * (ABNORMAL) Sedimentation Rate (03/30/2025 11:15 AM EDT) Pathologist [facility] Sed Rate 42(H) 0 - 30 mm/hr [facility] Blood 03/30/2025 11:1 5 AM EDT 03/30/2025 Narrative [facility] ([facility]) - 04/02/2025 12:07 PM EST Performed at: [address] [place] [id number] Producer Director: Davin Damon MD, Phone: [phone] Patient Fasting: N us Paul Sorensen MD LAB BLOOD ORDERABLES Final Result [facility] ([facility]) [address] [place] [address], [facility] [address] [place] [address], * (ABNORMAL) CBC & Differential (03/30/2025 11:15 [...] - 04/02/2025 12:07 PM EST Performed at: [address] [place] [id number] Producer Director: Davin Damon MD, Phone: [phone] Patient Fasting: N us Paul Sorensen MD LAB BLOOD ORDERABLES Final Result Performing Organization Address City/[facility]/ZIP Co de Phone Number [facility] (AMBULATORY) [address] [place] [address], [place] [phone] [facility] [address] [place] [address], [place] [phone] * (ABNORMAL) C-reactive Protein (03/30/2025 11:15 AM EDT) C-Reactive Protein 8.10(H) 0.00 - 0.50 mg/dL [facility] Blood 03/30/2025 11:1 5 AM EDT 03/30/2025 Narrative [facility] ([facility]) - 04/02/2025 12:07 PM EST Performed at: [address] [place] [id number] Producer Director: Davin Damon MD, Phone: [phone] Patient Fasting: N us Paul Sorensen MD LAB BLOOD ORDERABLES Final Result [facility] ([place]) [place] [address], [place] [phone] [facility] [address] [place] [address], [place] [phone] * Comprehensive Metabolic Panel (03/30/2025 11:15 AM EDT) Glucose 88 65 - 99 mg/dL [facility] [...] 04/02/2025 12:07 PM EST Performed at: [address] [id number] Producer Director: Davin Damon MD, Phone: [phone] Patient Fasting: N Paul Sorensen MD LAB BLOOD ORDERABLES Final Result [facility] ([facility]) [address] [place] [address], [place] [phone] [facility] [address] [place] [address], from Last 3 Months Insurance [facility] [employer] [place], [place] [id number] Care Teams Pilot Can Router Relationship Specialty Start Date End Date Chip Whitaker MD [address] [facility] [address] [place] [address] PCP - General Family Medicine 04/19/17
--- OUTSIDE RECORDS SUMMARY | 2025-04-06 11:28 | XMS_ITS | Encounter Summary ---
Author Organization [facility] yste Address [address] [id number] Care Team Providers Care Hydrogen Plant Operator Name Role Phone Chip Whitaker MD Primary Care Provider [phone] [phone] Encounter Details Date Type Department Care Team (Late st Contact Info) Description 04/03/2025 Results Follow-Up [facility] [address] [place] [phone] Paul Sorensen MD [address] [place] [phone] Social History Tobacco Use Types Packs/Day Years Used Date Smoking Tobacco: Never Passive Smoke Exposure: Current Smokeless Tobacco: Never Alcohol Use Standard Drinks/Week Comments Yes 0 (1 standard drink = 0.6 oz pur e alcohol) rarely Comments Unknown Sex and Gender Information Value Date Recorded Sex Assigned at Female 03/27/2025 5:06 AM EDT Legal Sex Female 10:32 AM EST Gender Identity Not on file Sexual Orientation Choose not to disclose 2024 5:06 AM EDT documented as of this encounter Plan of Treatment Upcoming Encounters Date Type Department Care Team (Late st Contact Info) Description 07/27/2025 2:15 PM EST Office Visit [facility] [address] [place] [phone] Wander Newell APRN [address] [place] [phone] documented as of this encounter Visit Diagnoses Not on filedocumented in this encounter Care Teams Hydrogen Plant Operator Relationship Specialty Start Date End Date Chip Whitaker MD [address] [facility] [address] [facility] [address] [place] [address] PCP - General Family Medicine 04/19/17 documented as of this encounter
--- OUTSIDE RECORDS SUMMARY | 2025-04-06 11:28 | XMS_ITS | Patient Health Record ---
[facility] Organization [facility] Address [address] [place] [id number] Care Team Providers Care Child Care Specialist Name Role Phone Kingston Whitaker Primary Care Provider Allergies Allergen (clinical drug ingredient) Drug/Non Drug Allergy documented on EMR Reaction Allergy Type Onset Date Status acetaminophen / oxycodone Percocet pains in stomach and vomiting Drug Allergy Active Results Component Value Reference Range Notes ultrasound : Transvaginal Reviewed date:10/06/2024 08:56:00 AM Interpretation:Abnormal Performing Lab: Notes/Report: Abnormal P-Lipid Panel Reviewed date:08/09/2024 04:44:47 PM Interpretation:satisfactory Performing Lab: Notes/Report: Test performed by [facility] [address] [place] [address] , [address], [place] [address] Brandan Benavides MD, Spotter CLIA: [id number] Cholesterol 191 <200 mg/dL Triglycerides 77 <150 mg/dL HDL Cholesterol 58 >39 mg/dL Cholesterol / HDL Ratio 3.29 0.00-4.44 Ratio Non-HDL Cholesterol 133 <130 mg/dL LDL Cholesterol (Calculation) 118 <130 mg/dL LDL Cholesterol Levels* Less than [...] Results: 108 Units: mg/dL % Change: - Test Date: 08/04/2024 LDL Results: 118 Units: mg/dL % Change: +9% P-Comprehensive Metabolic Pa jocelin (CMP) Reviewed date:08/09/2024 04:44:47 PM Interpretation:Normal Performing Lab: Notes/Report: Test performed by [facility] [address] [facility] , [address], [place] [address] Brandan Benavides MD, Spotter CLIA: [id number] Sodium 143 135-145 mmol/L Potassium 4.8 3.5-5.3 mmol/L Chloride 105 97-108 mmol/L CO2 29 22-32 mmol/L Glucose 96 65-99 mg/dL BUN 17 6-20 mg/dL Creatinine 0.74 0.50-1.00 mg/dL Calcium 9.1 8.6-10.4 mg/dL eGFR by Creatinine 95 >59 mL/min/1.73m2 Protein 6.8 6.0-8.3 g/dL Albumin 4.1 3.5-5.3 g/dL Alkaline Phosphatase 89 35-121 IU/L ALT (SGPT) 27 <5-47 IU/L AST (SGOT) 21 <5-40 IU/L Bilirubin, Total 0.5 <0.2-1.2 mg/dL A/G Ratio 1.5 1.1-2.5 Reason For Referral No Information Medications Medication SIG (Take, Route, Frequency, Duration) Notes Start Date End Date Status Tylenol Extra Strength 500 MG 2 tab(s) orally every 6 hours prn Active Multivitamin - 1 tab(s) orally once a day Active ZyrTEC Allergy 10 MG 1 tab(s) orally onc e a day 08/17/2014 Active Vitamin D3 50 MCG (1999 UT) 1 tab(s) orally once a day 03/19/2015 Active Allopurinol 100 MG 1 tablet Orally Once a day; Duration: 30 day(s) 01/27/2024 Not-Taking Methotrexate 2.5 MG 6 tablets orally onc e a week Active Lisinopril 20 MG Take 1 tablet by mickie th once daily for 90 days; Duration: 90 Active Estradiol 0.5 MG Take 1 tablet by mickie th once daily; Duration: 90 Active Humira 40 MG/0.8ML 0.4 mL Subcutaneous every 14 days Active Cyclobenzaprine HCl 10 MG 1 tab(s) Orall y two times a day as needed Active DULoxetine HCl 30 MG 1 capsule Orally On ce a day; Duration: 30 day(s) Active medroxyPROGESTERone Acetate 2.5 MG TAKE 1 TABLET BY MOUTH ONCE DAILY FOR THE FIRST 7 DAYS OF EACH MONTH; Duration: 84 Active Clotrimazole 10 MG 1 cindy while on immunosuppressive medicine Mouth/Throat 5 times a day; Duration: 10 day(s) 01/27/2024 Active Atorvastatin Calcium 20 MG 1 tablet Orally Once a day; Duration: 90 days Active Esomeprazole Magnesium 20 MG 1 capsule orally once a day; Duration: 30 days Active Triamterene-HCTZ 37.5-25 MG take 1 tablet Orally Once a day; Duration: 90 days Active Immunizations Vaccine Route Administration Date Status Comme nts Tetanus Tdap-Adacel (over 7yrs) IM Intramuscular 09/07/2020 Administered Shingrix IM Intramuscular 08/05/2023 Administered Shingrix IM Intramuscular 01/27/2024 Administered Hepatitis A (adult) Unknown 05/11/2018 Administered DT, 7 YEARS OR OLDER Unknown 07/30/1996 Administered COVID 19 Kip Unknown 08/07/2020 Administered Problems Problem Type SNOMED Code ICD Code Onset Dates Problem Status W/U Status Risk Notes Problem Information temporarily unavailable Allergic rhinitis due to allergen (477.8) Active confirmed Problem Information temporarily unavailable Hyperuricemia (E79.0) Active confirmed Problem Information temporarily unavailable Lymphedema (I89.0) Active confirmed Problem Information temporarily unavailable Pure hypercholesterolemia (E78.0) Active confirmed Problem Information temporarily unavailable Hormone replacement therapy (Z79.890) Active confirmed Problem Information temporarily unavailable Chronic GERD (K21.9) Active confirmed Problem Information temporarily unavailable Polycystic ovary (E28.2) Active confirmed Problem Information temporarily unavailable Protrusion of lumbar intervertebral disc (M51.26) Active confirmed Problem Information temporarily unavailable Pure hypercholesterolemia (E78.00) Active confirmed Problem Information temporarily unavailable Pure hypercholesterolemia, unspecified (E78.00) Active confirmed Problem Information temporarily unavailable Synovial cyst of left popliteal space (M71.22) Active confirmed Problem Information temporarily unavailable Lipoedema (R60.9) Active confirmed Problem Information temporarily unavailable Rheumatoid arthritis with positive rheumatoid factor, involving unspecified site (M05.9) Active confirmed Problem Information temporarily unavailable Primary hypertension (I10) Active confirmed Problem Information temporarily unavailable Symptomatic varicose veins of both lower extremities (I83.893) Active confirmed Vital Signs Heart Rate 80 /min 12/08/2024 Blood pressure diastolic 62 mm Hg 12/08/2024 Height 65.25 in 12/08/2024 Blood pressure systolic 124 mm Hg 12/08/2024 Weight 252.2 lbs 12/08/2024 BMI 41.64 kg/m2 12/08/2024 Encounters Encounter Location Date Provider Diagnosis [facility] [address] [place] [id number] 12/08/2024 Kingston Whitaker Polycystic ovary E28 .2 ; Hormone replacement therapy Z79.890 ; Pure hypercholesterolemia E78.00 ; Lymphedema I89.0 ; Lipoedema R60.9 and Rheumatoid arthritis with positive rheumatoid factor, involving unspecified site M05.9 [facility] [address] [place] [id number] 08/04/2024 Kingston Whitaker Polycystic ovary E28 .2 ; Pure hypercholesterolemia E78.00 ; Hormone replacement therapy Z79.890 ; Lymphedema I89.0 ; Lipoedema R60.9 ; Primary hypertension I10 ; Rheumatoid arthritis with positive rheumatoid factor, involving unspecified site M05.9 and Symptomatic varicose veins of both lower extremities I83.893 [facility] [address] [facility] [address] [place] [id number] 10/06/2024 Kingston Whitaker [facility] [address] [facility] [address] [place] [id number] 12/26/2024 Kingston Whitaker Screening for breast cancer Z12.39 [facility] [address] [facility] [address] [place] [id number] 06/30/2024 Kingston Whitaker Assessments Encounter Date Diagnosis (ICD Code) Assessment Notes Treatment Notes Treatment Clinical Notes Section Notes 08/04/2024 Polycystic ovary (IC D-10 - E28.2) 08/04/2024 Pure hypercholesterolemia (ICD-10 - E78.00) 12/08/2024 Polycystic ovary (IC D-10 - E28.2) 12/26/2024 Screening for breast cancer (ICD-10 - Z12.39) 12/08/2024 Hormone replacement therapy (ICD-10 - Z79.890) 08/04/2024 Hormone replacement therapy (ICD-10 - Z79.890) 08/04/2024 Lymphedema (ICD-10 - I89.0) 12/08/2024 Pure hypercholesterolemia (ICD-10 - E78.00) 12/08/2024 Lymphedema (ICD-10 - I89.0) 08/04/2024 Lipoedema (ICD-10 - R60.9) 08/04/2024 Primary hypertension (ICD-10 - I10) 12/08/2024 Lipoedema (ICD-10 - R60.9) 12/08/2024 Rheumatoid arthritis with positive rheumatoid factor, involving unspecified site (ICD-10 - M05.9) 08/04/2024 Rheumatoid arthritis with positive rheumatoid factor, involving unspecified site (ICD-10 - M05.9) 08/04/2024 Symptomatic varicose veins of both lower extremities (ICD-10 - I83.893) Plan Of Treatment Pending Test Test Name Order Date Mammogram 12/26/2024 Next Appt Details Provider Name:Kingston Bassettalicia er, 06/15/2025 09:30:00 AM, [address], [address], [place], [place], [id number], Insurance Providers Payer Name Payer Address Payer Phone Subscriber Number Group Number Insured Name Patient Relationship to Insured Coverage Start Date Coverage End Date [employer] [address] [place] [address] [id number] Alma Portillo Self - patient is the insured Medical (General) History Medical History History ICD Code Hiatal hernia flu shot 02/2020 at work covid vaccine J&J - july 2020 Surgical History Surgery Date(Month/Year) wisdom teeth extractions 1992 bunionectomy, right 2001 tendonitis left , X2 1999 colonoscopy, Dr. Gonzalez 10/2017 Vascular surgery for varicose veins
--- OUTSIDE RECORDS SUMMARY | 2025-04-06 11:28 | XMS_ITS | Encounter Summary ---
Author Organization [facility] Address [address] [place] [id number] Care Team Providers Care Bomb Technician Name Role Phone Chip Whitaker MD Primary Care Provider [phone] Encounter Details Date Type Department Care Team (Late st Contact Info) Description 01/30/2025 Telephone [facility] R[facility]Y [address] [phone] Paul Sorensen MD [address] [address] Social History Tobacco Use Types Packs/Day Years Used Date Smoking Tobacco: Never Smokeless Tobacco: Never Alcohol Use Standard Drinks/Week Comments Yes 0 (1 standard drink = 0.6 oz pur e alcohol) rarely Comments Unknown Sex and Gender Information Value Date Recorded Sex Assigned at Female 03/27/2025 5:06 AM EDT Legal Sex Female 10:32 AM EST Gender Identity Not on file Sexual Orientation Choose not to disclose 2024 5:06 AM EDT documented as of this encounter Miscellaneous Notes * Telephone Encounter - [facility] RegSched Rep - 01/30/2025 1:57 PM EDT Images from the original note were not included. documented in this encounter Plan of Treatment Upcoming Encounters Date Type Department Care Team (Late st Contact Info) Description 07/27/2025 2:15 PM EST Office Visit [facility] RHEUMATOLOGY [address] [phone] Wander Newell, PELLET POST INSPECTOR [address] [address] documented as of this encounter Visit Diagnoses Not on filedocumented in this encounter Care Teams Bomb Technician Relationship Specialty Start Date End Date Chip Whitaker MD [address] [facility] [address] [facility] [address] [place] [address] PCP - General Family Medicine 04/19/17 documented as of this encounter
--- OUTSIDE RECORDS SUMMARY | 2025-04-06 11:28 | XMS_ITS ---
Author Organization [facility] Address [address] [place] [id number] Care Team Providers Care Financial Secretary Name Role Phone Chip Whitaker MD Primary Care Provider [phone] Rheumatology - External Fill Status:Enrolled (Active) Start date:12/16/2023 Enrollment date:12/24/2023 Enrollment reason:Identified as being on target medication Current support & services provided:Benefits Investigation, External Pharmacy Dispensing Linked medications:Adalimumab (Active) Linked problems:Other rheumatoid arthritis with rheumatoid factor of multiple sites (Active) Overview Lauren at [facility] (payer restriction) Case Team Name Relationship Phone Ciara Ramirez Commercial Real Estate Lender Patient Ca re Vice President Network Development Mainor Aguero Commercial Real Estate Lender Vice President Network Development Ta Garcia PharmD Pharmacist Continued Care and Services Coordination
--- OUTSIDE RECORDS SUMMARY | 2025-04-06 11:28 | XMS_ITS | Encounter Summary ---
[facility] Address [address] [place] [phone] Care Team Providers Care Building Construction Inspector Name Role Phone Chip Whitaker MD Primary Care Provider [phone] Encounter Details Date Type Department Care Team (Latest Contact Info) Description 03/30/2025 Travel Social History Tobacco Use Types Packs/Day Years [...] Description 07/27/2025 2:15 PM EST Office Visit [facility] RHEUMATOLOGY [address] [place] [phone] Wander Newell, YARN TEXTURING MACHINE OPERATOR 330 [facility] [address] [place] [address] documented as of this encounter Visit Diagnoses Not on filedocumented in this encounter Care Teams Building Construction Inspector Relationship Specialty Start Date End Date Chip Whitaker MD [address] [facility] [address] [place] [address] PCP - General Family Medicine 04/19/17 documented as of this encounter
--- OUTSIDE RECORDS SUMMARY | 2025-04-06 11:28 | XMS_ITS | Encounter Summary ---
Author Organization [facility] yste Address [address] [place] [phone] Care Team Providers Care Top And Seat Cover Fitter Name Role Phone Chip Whitaker MD Primary Care Provider [phone] Encounter Details Date Type Department Care Team (Late st Contact Info) Description 09/20/2024 Results Follow-Up [facility] RHEUMATOLOGY [address] [address] Wander Newell D, DIMENSION STONE QUARRY SUPERVISOR [address] [address] Social History Tobacco Use Types Packs/Day Years [...] Description 07/27/2025 2:15 PM EST Office Visit [facility] RHEUMATOLOGY [address] [phone] Wander Newell, DIMENSION STONE QUARRY SUPERVISOR [address] [phone] documented as of this encounter Visit Diagnoses Not on filedocumented in this encounter Care Teams Top And Seat Cover Fitter Relationship Specialty Start Date End Date Chip Whitaker MD [address] [facility] [address] [facility] 2 [place] [address] PCP - General Family Medicine 04/19/17 documented as of this encounter
--- NOTE | 2025-04-06 11:31 | XR_ITS ---
FINAL REPORT CLINICAL HISTORY: RHEUMATOID ARTHRITIS. patient stated that she fell back in May of this year and hit her right knee on the ground. patient stated that in January her right knee began to give her trouble after coming back from a trip to [place] after walking a lot. patient has been having right knee pain since her trip. FINDINGS: AP and lateral views of the right knee were obtained. There is no prior exam for comparison. There is no acute fracture or dislocation. There is mild degenerative joint disease, most pronounced in the medial compartment. There is a small joint effusion. IMPRESSION: No acute osseous abnormality of the right knee. Mild degenerative joint disease with a small joint effusion. If pain persists, MRI is recommended. Authenticated and ERN
== END 2025-04-06 23:59 ==
LOC: RAD 11:26
PROVIDERS: PCP Family Medicine; Visit Provider Internal Medicine
DX: M05.79 Rheumatoid arthritis with rheumatoid factor of multiple sites without organ or systems involvement (principal); M17.11 Unilateral primary osteoarthritis, right knee
CPT/HCPCS: 73560